=== PATIENT | female | born 1955 | race Caucasian/White ===

== ENCOUNTER 2017-06-04 07:10 | Day surgery (SDC) ==
[2013-12-31 15:03] VITALS: BMI 28.8
[2017-06-04] MEDS ORDERED: LIDOCAINE 1% 20 ML MDV ID STA (08:42)
[2017-06-04] MEDS ORDERED: DIPRIVAN 20 ML VIAL IVP ONE (09:20)
[2017-06-04] MEDS ORDERED: VERSED ONE (09:20)
[2017-06-04 10:52] VITALS: BP 120/65; TEMP 97.2
--- NOTE | 2017-06-05 11:56 | OP ---
INDICATIONS FOR PROCEDURE: 62-year-old female presents for colonoscopy exam. She had change in her bowel habits. She is having some increased loose stools. She usually suffers with constipation. She also has a family history of colon cancer involving her mother at age 76 and an uncle at age 76. MEDICATIONS: SEE ANESTHESIA NOTES. PROCEDURE: COLONOSCOPY, SNARE POLYPECTOMY, BIOPSY. REPORT: The risks, benefits, alternatives and limitations were discussed in detail with the patient. Informed consent was obtained. After adequate sedation was achieved, a digital rectal exam revealed good tone, no masses. The colonoscope was introduced into the rectum and advanced under direct visual guidance to the cecum. She has a very long redundent colon, required external pressure to get the scope tip into the cecum but the cecum was identified by the appendiceal orifice and IC valve. I then slowly withdrew the scope in a circumferential manner examining the mucosa quite carefully. I looked on the proximal and distal side of folds and flexures as best as possible. I was able to retroflex the scope in the right colon and left colon to increase visualization. In transverse colon, descending and sigmoid area there appeared to be some pigmentation of the mucosa suggestive of a melanosis. I biopsied this for histologic review. There was also a 6 or 7 mm sessile polyp in the descending colon. I removed this by snare technique. No other abnormalities were noted including on retroflex view of the anal canal. The prep was adequate. Withdrawal time was 10 minutes and 3 seconds. The patient tolerated the procedure well with stable vital signs and pulse oximetry throughout. IMPRESSION: 1. LONG REDUNDENT COLON 2. SMALL POLYP REMOVED 3. 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 High fiber diet. Suggesting a daily fiber supplement. The patient has told me that she has tried this already and it has improved her symptoms. 2. I will discuss with her possible supplements she is taking that may include a laxative and what to watch for. 3. Await colon polyp pathology. If everything is benign, I recommend repeat colonoscopy examination again in 5 years. 4. We will see her back in the office as needed. CC: Dr. Joseluis POWELL
== END 2017-06-04 11:45 | disposition home or self-care (01) ==
LOC: SURG 07:10
PROVIDERS: ATTEND Internal Medicine Gastroenterology
DX: R19.4 Change in bowel habit (principal); D12.4 Benign neoplasm of descending colon; D12.3 Benign neoplasm of transverse colon; K59.09 Other constipation; Q43.8 Other specified congenital malformations of intestine; Z80.0 Family history of malignant neoplasm of digestive organs
CPT/HCPCS: 82962

== ENCOUNTER 2017-06-25 14:08 | Emergency (ER) ==
[2017-06-25 14:15] VITALS: BP 129/71; TEMP 97.7; BMI 29.5
[2017-06-25] MEDS ORDERED: DUONEB NEB STA (16:05)
[2017-06-25] MEDS ORDERED: SOLU-MEDROL 125 MG IVP STA (16:23)
--- NOTE | 2017-06-25 16:48 | DI ---
EXAM: Chest two views HISTORY: Cough COMPARISON: 12/31/2013 TECHNIQUE: Two views of the chest were performed FINDINGS: The lungs are clear, excepting for granulomatous calcification. There is no pleural effus ion or pneumothorax. The heart is normal in size. The mediastinal contour is normal. Atherosclerosi s. Median sternotomy wires.. There are no acute abnormalities of the bones. Right cervical rib note d. IMPRESSION: No acute cardiopulmonary process.
[2017-06-25] MEDS ORDERED: LIDOCAINE HCL 1% SDV SUBCUT STA (17:51)
[2017-06-25] MEDS ORDERED: DECADRON 4 MG/ML SDV IM STA (17:51)
[2017-06-25] MEDS ORDERED: ROCEPHIN IM STA (17:51)
--- NOTE | 2017-06-25 17:58 | ED.PDOC ---
General ED Provider: Dr. JOAN VELEZ Chief Complaint: Respiratory Complaint Stated Complaint: cough Time Seen by Physician: 14:00 (seen with cathy at all times ) Mode of Arrival: Wheelchair Information Source: Patient Exam Limitations: No limitations Primary Care Provider: CHEN MERCER Nursing and Triage Documentation Reviewed and Agree: Yes (on warfarin ) Reviewed sepsis parameters & appropriate labs ordered?: Yes System Inflammatory Response Syndrome: Not Applicable Sepsis Protocol: For patient's 13 years and over: Temp is 96.8 and below OR 101 and greater Pulse >90 BPM Resp >20/minute Acutely Altered Mental Status Are patient's symptoms suggestive of a new infection, such as: -Pneumonia -Skin, Soft Tissue -Endocarditis -UTI -Bone, Joint Infection -Implantable Device -Acute Abdominal Infection -Wound Infection -Meningitis -Blood Stream Catheter Infection -Unknown Respiratory Complaint Exam - Respiratory Complaint/Exam Onset/Duration: 1 day Symptoms Are: Still present, Resolved Timing: Intermittent Initial Severity: Mild Current Severity: None Location: Nose, Throat, Chest Character: Reports: Non-productive cough Aggravating: Reports: None Alleviating: Reports: Bronchodilators, Spontaneous resolution Associated Signs and Symptoms: Reports: URI, Nasal congestion. Denies: Rapid breathing, Dyspnea, Fever, Chills, Chest pain, Pleuritic chest pain, Wheezing, Hemoptysis, Dizziness, Calf pain, Calf swelling, Edema, Hoarseness, Sinus discomfort, Vomiting, Sore throat, Weight loss, Decreased oral intake, Increased thirst, Increased appetite, Increased urination Related History: Reports: Similar episode History of Healthcare-Acquired Pneumonia: No Related Surgical History: Reports: None Pulmonary Embolism Risk Factors: None Review of Systems - Review Of Systems Constitutional: Reports: No symptoms Eyes: Reports: No symptoms Ears, Nose, Mouth, Throat: Reports: No symptoms Respiratory: Reports: Cough Cardiac: Reports: No symptoms GI: Reports: No symptoms : Reports: No symptoms Musculoskeletal: Reports: No symptoms Skin: Reports: No symptoms Neurological: Reports: No symptoms Endocrine: Reports: No symptoms Hematologic/Lymphatic: Reports: No symptoms All Other Systems: Reviewed and Negative Past Medical History - Past Medical History Previously Healthy: Yes Endocrine: Reports: DM 2 Cardiovascular: Reports: Hypertension Respiratory: Reports: None Hematological: Reports: None Gastrointestinal: Reports: None Genitourinary: Reports: None Neuro/Psych: Reports: None Musculoskeletal: Reports: None Cancer: Reports: None Last Menstrual Period: N/A - Surgical History General Surgical History: Reports: None - Family History Family History: Reports: None - Social History Smoking Status: Former smoker Hx Substance Use: No Alcohol Screening: None - Immunizations Tetanus Shot up to Date: No Physical Exam - Physical Exam Appearance: Well-appearing, No pain distress, Well-nourished Eyes: JESSICA, EOMI, Conjunctiva clear ENT: Ears normal, Nose normal, Oropharynx normal Respiratory: Airway patent, Breath sounds equal, Respirations nonlabored, Rhonchi Cardiovascular: RRR, Pulses normal, No rub, No murmur GI/: Soft, Nontender, No masses, Bowel sounds normal, No Organomegaly Musculoskeletal: Normal strength, ROM intact, No edema, No calf tenderness Skin: Warm, Dry, Normal color Neurological: Sensation intact, Motor intact, Reflexes intact, Cranial nerves intact, Alert, Oriented Psychiatric: Affect appropriate, Mood appropriate Interpretation - Radiology Interpretation Radiology Interpretation By: Radiologist Radiology Results: No acute changes Physician Notification - Case Discussed Physician Notified: pmd Time of Notification: 17:58 Admit To: Inpatient Critical Care Note - Critical Care Note Total Time (mins): 0 Course - Course Hematology/Chemistry: 06/25/17 16:25 06/25/17 16:25 Orders, Labs, Meds: Lab Review 06/25/17 06/25/17 06/25/17 16:23 16:25 16:25 WBC 5.46 RBC 4.54 Hgb 13.9 Hct 41.9 MCV 92.3 MCH 30.6 MCHC 33.2 RDW Coeff of Boni 13.2 Plt Count 226 Immature Gran % (Auto) 0.4 Neut % (Auto) 48.5 Lymph % (Auto) 26.6 [place] % (Auto) 17.0 H Eos % (Auto) 6.6 Baso % (Auto) 0.9 Immature Gran # (Auto) 0.0 Neut # 2.7 Lymph # 1.5 [place] # 0.9 Eos # 0.4 Baso # 0.1 Puncture Site Rr O2 Saturation 96.0 ABG pH 7.427 ABG pCO2 41.6 ABG pO2 78.0 L ABG HCO3 27.4 H ABG Total CO2 29 H ABG Base Excess 3 H Saulo Test + FiO2 % 21.0 Sodium 140 Potassium 3.6 Chloride 101 Carbon Dioxide 32 H Anion Gap 10.6 BUN 17 Creatinine 1.79 H Estimated GFR (MDRD) 29.00 BUN/Creatinine Ratio 9.49 Glucose 135 H Calcium 9.0 Total Bilirubin 0.4 AST 38 H ALT 22 Alkaline Phosphatase 89 Total Creatine Kinase 92 Troponin I 0.0220 Total Protein 8.1 Albumin 3.5 Globulin 4.6 Albumin/Globulin Ratio 0.76 Urine Color Urine Clarity Urine pH Ur Specific Britt Urine Protein Urine Glucose (UA) Urine Ketones Urine Blood Urine Nitrite Urine Bilirubin Urine Urobilinogen Ur Leukocyte Esterase Urine Microscopic WBC Ur Squamous Epith Cells Urine Bacteria Influenza A (Rapid) Influenza B (Rapid) 06/25/17 06/25/17 16:30 16:33 WBC RBC Hgb Hct MCV MCH MCHC RDW Coeff of Boni Plt Count Immature Gran % (Auto) Neut % (Auto) Lymph % (Auto) [place] % (Auto) Eos % (Auto) Baso % (Auto) Immature Gran # (Auto) Neut # Lymph # [place] # Eos # Baso # Puncture Site O2 Saturation ABG pH ABG pCO2 ABG pO2 ABG HCO3 ABG Total CO2 ABG Base Excess Saulo Test FiO2 % Sodium Potassium Chloride Carbon Dioxide Anion Gap BUN Creatinine Estimated GFR (MDRD) BUN/Creatinine Ratio Glucose Calcium Total Bilirubin AST ALT Alkaline Phosphatase Total Creatine Kinase Troponin I Total Protein Albumin Globulin Albumin/Globulin Ratio Urine Color Yellow Urine Clarity Clear Urine pH 5.5 Ur Specific Britt 1.010 Urine Protein Negative Urine Glucose (UA) Negative Urine Ketones Negative Urine Blood 1+ Urine Nitrite Negative Urine Bilirubin Negative Urine Urobilinogen 0.2 Ur Leukocyte Esterase 1+ Urine Microscopic WBC 2-5 Ur Squamous Epith Cells 5-10 Urine Bacteria Trace Influenza A (Rapid) Negative by naat Influenza B (Rapid) Negative by naat Orders Category Date Time Status ABG DRAW REQUEST Stat CARDIO 06/25/17 16:23 Ordered EKG-(ED ONLY) Stat CARDIO 06/25/17 16:05 Completed NEBULIZER TREATMENT Stat CARDIO 06/25/17 16:06 Ordered ED IV/MEDIPORT/POWERPORT .ONCE EMERGENCY 06/25/17 16:06 Active ABG Stat LAB 06/25/17 16:23 Completed CBC W/ AUTO DIFF Stat LAB 06/25/17 16:25 Completed COMPREHENSIVE METABOLIC PANEL Stat LAB 06/25/17 16:25 Completed CREATINE KINASE Stat LAB 06/25/17 16:25 Completed MOLECULAR GROUP A STREP Stat LAB 06/25/17 16:30 Results PARTIAL THROMBOPLASTIN TIME Stat LAB 06/25/17 17:59 Ordered PT WITH INR Stat LAB 06/25/17 17:59 Ordered RAPID FLU A/B Stat LAB 06/25/17 16:30 Completed STREP SCREEN Stat LAB 06/25/17 16:30 Results TROPONIN I Stat LAB 06/25/17 16:25 Completed URINALYSIS C & S IF INDICATED Stat LAB 06/25/17 16:33 Completed 0.9 % Sodium Chloride [Saline Flush] MEDS 06/25/17 16:06 Active 1 syr IVF PRN PRN Ceftriaxone Sodium [Rocephin] MEDS 06/25/17 17:51 Discontinued 1 gm IM ONCE STA Ipratropium/Albuterol Neb [Duoneb] MEDS 06/25/17 16:05 Discontinued 1 vial NEB ONCE STA Lidocaine HCl/Pf [Lidocaine HCl 1% Sdv] MEDS 06/25/17 17:51 Discontinued 5 ml SUBCUT ONCE STA Methylprednisolone Sod Succ/Pf [Solu-Medrol 125 mg] MEDS 06/25/17 16:23 Discontinued 125 mg IVP ONCE STA CHEST, 2 VIEWS PA & LAT Stat RADS 06/25/17 16:04 Completed Medications Generic Name Dose Route Start Last Admin Trade Name Freq PRN Reason Stop Dose Admin Sodium Chloride 1 syr 06/25/17 16:06 06/25/17 16:48 Saline Flush IVF 1 syr PRN PRN Administration To flush IV Discontinued Medications Generic Name Dose Route Start Last Admin Trade Name Freq PRN Reason Stop Dose Admin Albuterol/Ipratropium 1 vial 06/25/17 16:05 06/25/17 16:38 Duoneb NEB 06/25/17 16:06 1 vial ONCE STA Administration Ceftriaxone Sodium 1 gm 06/25/17 17:51 06/25/17 17:59 Rocephin IM 06/25/17 17:52 1 gm ONCE STA Administration Lidocaine HCl 5 ml 06/25/17 17:51 06/25/17 17:59 Lidocaine Hcl 1% Sdv SUBCUT 06/25/17 17:52 2.1 ml ONCE STA Administration Methylprednisolone Sodium Succinate 125 mg 06/25/17 16:23 06/25/17 16:48 Solu-Medrol 125 Mg IVP 06/25/17 16:24 125 mg ONCE STA Administration Vital Signs: Temp Pulse Resp BP Pulse Ox 06/25/17 14:08 97.7 F 86 20 129/71 94 L Departure - Departure Time of Disposition: 18:01 Disposition: HOME SELF-CARE Discharge Problem: Viral syndrome, Cough in adult, Bronchitis Instructions: Acute Bronchitis (ED), Cold Symptoms (ED), Chronic Cough (ED) Condition: Good Pt referred to PMD for follow-up: Yes Additional Instructions: Please call your Family Physician as soon as possible to schedule a follow-up appointment. Allergies/Adverse Reactions: Allergies clopidogrel bisulfate [From Plavix] Adverse Reaction (Verified 12/31/13 15:08) erythromycin base [Erythromycin Base] Adverse Reaction (Verified 12/31/13 15:08) ibuprofen Adverse Reaction (Verified 12/31/13 15:08) insulin detemir [From Levemir] Adverse Reaction (Verified 12/31/13 15:08) insulin NPH human isophane [From Humulin 70/30] Adverse Reaction (Verified 12/31 15:08) insulin regular, human [From Humulin 70/30] Adverse Reaction (Verified 12/31/13 15:08) iodine Adverse Reaction (Verified 12/31/13 15:08) topiramate [From Topamax] Adverse Reaction (Verified 12/31/13 15:08) Home Medications: Ambulatory Orders Alprazolam [Xanax] 0.5 mg PO TID PRN 12/31/13 Aspirin [Aspirin EC] 325 mg PO DAILYWM 12/31/13 Cilostazol [Cilostazol] 100 mg PO BID 12/31/13 Cimetidine [Tagamet] 800 mg PO BEDTIME 12/31/13 Clindamycin HCl 300 mg PO TID 12/31/13 Ergocalciferol (Vitamin D2) [Vitamin D2] 50,000 unit PO WEEKLY 12/31/13 Esomeprazole Magnesium [Nexium] 40 mg PO BID 12/31/13 Folic Acid [Folic Acid] 3 tab PO DAILY 12/31/13 Furosemide [Lasix] 80 mg PO BID 12/31/13 Hydrocodone Bit/Acetaminophen [[place] 10-325] 1 each PO Q6HR PRN 12/31/13 Hypromellose [Systane Gel] 10 gm OP BEDTIME 12/31/13 Insulin Aspart [Novolog Flexpen] 2 units SQ UNKNOWN 12/31/13 Insulin Glargine,Hum.rec.anlog [Lantus Solostar] 30 unit SQ DAILY 12/31/13 Iron 65 mg PO DAILY 12/31/13 Nitroglycerin [Nitrostat] 0.4 mg SL UNKNOWN PRN 12/31/13 Ondansetron HCl [Zofran] 4 mg PO TID PRN 12/31/13 Potassium Chloride [K-Dur] 20 meq PO TID 12/31/13 Propylene Glycol/Peg 400/Pf [Systane Ultra 0.4-0.3% Eye Drp] 1 each OP UNKNOWN 12/31/13 Simvastatin 20 mg PO DAILY 12/31/13 Sotalol HCl [Betapace] 40 mg PO BID 12/31/13 Warfarin Sodium [Coumadin] 7 mg PO DAILY 12/31/13 Calcitriol 1 PO DAILY 05/11/14 Cholecalciferol (Vitamin D3) [Vitamin D] PO WEEKLY 05/11/14 Ciprofloxacin HCl [Cipro] 1 PO Q12HR 05/11/14 Cyclosporine [Restasis] 1 OP BID 05/11/14 Linaclotide [Linzess] 1 PO DAILY 05/11/14 Disposition Discussed With: Patient, Family
== END 2017-06-25 18:29 | disposition home or self-care (01) ==
LOC: ED 14:08
DX: J40 Bronchitis, not specified as acute or chronic (principal); B34.9 Viral infection, unspecified; E11.9 Type 2 diabetes mellitus without complications; I10 Essential (primary) hypertension; Z79.01 Long term (current) use of anticoagulants; Z79.899 Other long term (current) drug therapy
CPT/HCPCS: 36415; 80053; 81001; 82550; 82803; 84484; 85025; 85610; 85730; 87502; 87651; 87880; 93005; 93010; 94640; 96374; 96375; 99283

== ENCOUNTER 2017-06-28 12:44 | Inpatient (IN) ==
[2017-06-28] MEDS ORDERED: ATROPINE SULFATE PFS IVP PRN (13:06)
[2017-06-28] MEDS ORDERED: TYLENOL PO PRN (13:06)
[2017-06-28] MEDS ORDERED: NITROSTAT SL PRN ×2 (13:06→14:26)
[2017-06-28] MEDS ORDERED: VISTARIL INJ IM PRN (13:06)
[2017-06-28] MEDS ORDERED: HUMULIN R SUBCUT PRN (13:06)
[2017-06-28] MEDS ORDERED: MORPHINE 4 MG/ML VIAL IVP PRN (13:06)
[2017-06-28] MEDS ORDERED: LANTUS SUBCUT SCH (13:15)
[2017-06-28 13:52] VITALS: BMI 30.3
[2017-06-28] MEDS ORDERED: ZYRTEC PO PRN (14:26)
[2017-06-28] MEDS ORDERED: XANAX PO PRN (14:26)
[2017-06-28] MEDS ORDERED: INSULIN LISPRO SQ PRN (14:26)
[2017-06-28] MEDS: LANTUS SUBCUT SCH (14:31)
[2017-06-28] MEDS: DEXTROSE 5%-1/2NS IV SOLUTION 1,000 ML IV SCH (14:31)
[2017-06-28] MEDS: ZITHROMAX PO SCH (14:32)
[2017-06-28] MEDS: DECADRON 4 MG/ML SDV IM SCH (14:32)
[2017-06-28] MEDS: ROCEPHIN 1 GM in SODIUM CHLORIDE 50 ML IV SCH (14:33)
--- NOTE | 2017-06-28 16:03 | DI ---
EXAM: CHEST FRONTAL VIEW HISTORY: Pneumonitis. COMPARISON: 06/25/2017 FINDINGS: Heart size remains within normal limits. Sternotomy wires are noted. There are scattered calcifications suggesting old granulomatous disease. No acute infiltrates are seen. No vascular con gestion. There is no consolidation, visible pleural fluid or pneumothorax. Bones reveal no acute fra cture. IMPRESSION: No acute cardiopulmonary process.
[2017-06-28] MEDS ORDERED: PEG OP PRN (18:59)
[2017-06-28] MEDS ORDERED: PROPYLENE GLYCOL OP PRN (18:59)
[2017-06-28] MEDS ORDERED: [UNRECOGNIZED DRUG - OTHER] OP PRN (18:59)
[2017-06-28] MEDS ORDERED: WARFARIN SODIUM 7 MG PO SCH (19:00)
[2017-06-28] MEDS ORDERED: COUMADIN ONE ×2 (19:04)
[2017-06-28] MEDS ORDERED: ZOCOR ONE (20:31)
[2017-06-28] MEDS ORDERED: NON-FORMULARY MEDICATION (Simvastatin [Simvastatin] 20 MG) PO SCH (21:00)
[2017-06-28] MEDS: BETAPACE PO SCH (21:03)
[2017-06-28] MEDS: PLETAL PO SCH (21:03)
[2017-06-28] MEDS: TAGAMET PO SCH (21:04)
[2017-06-28] MEDS: CALCITRIOL PO SCH (21:05)
[2017-06-29] MEDS: DEXTROSE 5%-1/2NS IV SOLUTION 1,000 ML IV SCH ×2 (03:22→23:13)
[2017-06-29] MEDS ORDERED: ASPIRIN EC PO SCH (08:00)
[2017-06-29] MEDS: ASPIRIN EC PO SCH (08:17)
[2017-06-29] MEDS: BETAPACE PO SCH ×2 (08:18→22:20)
[2017-06-29] MEDS: FOLIC ACID PO SCH (08:19)
[2017-06-29] MEDS: ZITHROMAX PO SCH (08:20)
[2017-06-29] MEDS: ROCEPHIN 1 GM in SODIUM CHLORIDE 50 ML IV SCH (08:20)
[2017-06-29] MEDS ORDERED: INSULIN GLARGINE HUM REC ANLOG 30 UNIT SQ SCH (09:00)
[2017-06-29] MEDS ORDERED: IRON 65 MG PO SCH (09:00)
[2017-06-29] MEDS ORDERED: LANTUS SUBCUT SCH (09:00)
[2017-06-29] MEDS: HUMALOG SUBCUT PRN ×3 (09:54→22:45)
[2017-06-29] MEDS: LANTUS SUBCUT SCH (09:55)
[2017-06-29] MEDS: DECADRON 4 MG/ML SDV IM SCH (09:56)
[2017-06-29] MEDS: PLETAL PO SCH ×2 (09:56→22:19)
[2017-06-29] MEDS: FERROUS SULFATE PO SCH (09:56)
[2017-06-29] MEDS: TUSSIONEX PO SCH ×2 (11:37→22:19)
[2017-06-29] MEDS ORDERED: COUMADIN PO SCH ×2 (17:00)
[2017-06-29] MEDS: ZOCOR PO SCH (22:19)
[2017-06-29] MEDS: TAGAMET PO SCH (22:19)
[2017-06-29] MEDS: CALCITRIOL PO SCH (23:13)
[2017-06-30] MEDS: NORCO 10-325 PO PRN (04:51)
[2017-06-30] MEDS: HUMALOG SUBCUT PRN ×3 (08:28→22:09)
[2017-06-30] MEDS: LANTUS SUBCUT SCH (08:28)
[2017-06-30] MEDS: FERROUS SULFATE PO SCH (08:29)
[2017-06-30] MEDS: ZITHROMAX PO SCH (08:29)
[2017-06-30] MEDS: ASPIRIN EC PO SCH (08:29)
[2017-06-30] MEDS: FOLIC ACID PO SCH (08:30)
[2017-06-30] MEDS: BETAPACE PO SCH ×2 (08:30→21:56)
[2017-06-30] MEDS: PLETAL PO SCH ×2 (08:30→21:57)
[2017-06-30] MEDS: DECADRON 4 MG/ML SDV IM SCH (08:31)
[2017-06-30] MEDS: TUSSIONEX PO SCH ×2 (09:25→22:02)
[2017-06-30] MEDS: ROCEPHIN 1 GM in SODIUM CHLORIDE 50 ML IV SCH (09:25)
[2017-06-30] MEDS: K-DUR PO SCH ×2 (12:13→16:57)
[2017-06-30] MEDS: CALCITRIOL PO SCH (21:57)
[2017-06-30] MEDS: TAGAMET PO SCH (21:58)
[2017-06-30] MEDS: ZOCOR PO SCH (21:59)
[2017-07-01] MEDS: NORCO 10-325 PO PRN ×2 (04:08→20:59)
[2017-07-01] MEDS: LANTUS SUBCUT SCH (08:39)
[2017-07-01] MEDS: FOLIC ACID PO SCH (08:39)
[2017-07-01] MEDS: BETAPACE PO SCH ×2 (08:40→20:59)
[2017-07-01] MEDS: DECADRON 4 MG/ML SDV IM SCH (08:40)
[2017-07-01] MEDS: K-DUR PO SCH ×3 (08:40→16:48)
[2017-07-01] MEDS: ASPIRIN EC PO SCH (08:40)
[2017-07-01] MEDS: PLETAL PO SCH ×2 (08:40→20:59)
[2017-07-01] MEDS: FERROUS SULFATE PO SCH (08:40)
[2017-07-01] MEDS: ROCEPHIN 1 GM in SODIUM CHLORIDE 50 ML IV SCH (08:43)
[2017-07-01] MEDS: TUSSIONEX PO SCH ×2 (08:45→20:59)
[2017-07-01] MEDS: XOPENEX 1.25 MG NEB SCH ×3 (17:03→22:47)
[2017-07-01] MEDS: HUMALOG SUBCUT PRN ×2 (17:32→21:00)
[2017-07-01] MEDS ORDERED: XOPENEX 0.63 MG NEB SCH (18:00)
[2017-07-01] MEDS: TAGAMET PO SCH (20:59)
[2017-07-01] MEDS: ZOCOR PO SCH (20:59)
[2017-07-01] MEDS: CALCITRIOL PO SCH (21:01)
[2017-07-02] MEDS: XOPENEX 1.25 MG NEB SCH ×4 (04:13→23:12)
[2017-07-02] MEDS: HUMALOG SUBCUT PRN ×4 (05:58→20:42)
[2017-07-02] MEDS: ROCEPHIN 1 GM in SODIUM CHLORIDE 50 ML IV SCH (08:29)
[2017-07-02] MEDS: ASPIRIN EC PO SCH (08:29)
[2017-07-02] MEDS: TUSSIONEX PO SCH ×2 (08:29→20:10)
[2017-07-02] MEDS: BETAPACE PO SCH ×2 (08:30→20:10)
[2017-07-02] MEDS: K-DUR PO SCH ×3 (08:30→17:01)
[2017-07-02] MEDS: FOLIC ACID PO SCH (08:30)
[2017-07-02] MEDS: FERROUS SULFATE PO SCH (08:30)
[2017-07-02] MEDS: PLETAL PO SCH ×2 (08:31→20:11)
[2017-07-02] MEDS: LANTUS SUBCUT SCH (08:31)
[2017-07-02] MEDS: DECADRON 4 MG/ML SDV IM SCH (08:31)
--- NOTE | 2017-07-02 10:34 | PCM.PROG ---
Attending Provider: ATTENDING PROVIDER: Dr. CHEN MERCER This patient is seen with Reva Guzmán, Nurse Practitioner. DATE OF SERVICE: 07/02/17 SUBJECTIVE: This 62 year old WHITE/ F was hospitalized 06/28/17. The patient is lying in bed, alert. She states cough is somewhat better. REVIEW OF SYSTEMS: CONSTITUTIONAL: No night sweats. No fatigue, malaise, lethargy. No fever or chills. HEENT: Eyes: No visual changes. No eye pain. No eye discharge. ENT: No runny nose. No epistaxis. No sinus pain. No odynophagia. No congestion. RESPIRATORY: Positive for cough and wheezing. No hemoptysis. No shortness of breath. CARDIOVASCULAR: No angina symptoms. No CHF symptoms. No atypical chest pain for CAD. No palpitations. No orthopnea.. GASTROINTESTINAL: No abdominal pain. No nausea or vomiting. No diarrhea or constipation. No hematemesis. No hematochezia. GENITOURINARY: No urgency. No frequency. No dysuria. No hematuria. No obstructive symptoms. No discharge. No pain. No significant abnormal bleeding. MUSCULOSKELETAL: No musculoskeletal pain; no joint swelling. NEUROLOGICAL: Awake, alert, oriented to time, place and person. No headache. No neck pain. No syncope. No seizures. No dizziness. PSYCHIATRIC: Not anxious. No depression. No suicidal thoughts. No homicidal thoughts. SKIN: No rash. No lesions. No wounds. ENDOCRINE: No unexplained weight loss. No weight gain. HEMATOLOGIC/LYMPHATIC: No anemia. No purpura. No petechiae. No prolonged or excessive bleeding. No palpable lymph nodes. PHYSICAL EXAMINATION: GENERAL: The patient is awake, alert and oriented, lying in bed in no distress. VITAL SIGNS: Temperature 97.7 F, Pulse 72, Respiratory Rate 20, BP 126/60, Pulse Ox 97% HEENT: Head normocephalic, atraumatic. Eyes: Extraocular muscles are intact. Pupils are equal, round and reactive to light and accommodation. Ears: No lesions. Nose appeared normal. Throat: No exudate or erythema. NECK: Supple. No JVD, no carotid bruit. No lymphadenopathy or thyromegaly. LUNGS: Diminished breath sounds bilaterally with faint expiratory wheeze. Percussion note normal. Chest symmetrical. HEART: S1, S2, no S3. No murmurs. No cyanosis or clubbing. No ascites. Pulses: Dorsalis pedis and posterior tibial pulses +1 to +2 both sides. ABDOMEN: Soft. Non-tender. Bowel sounds active. No CVA tenderness. No mass felt. EXTREMITIES: No edema. Full range of motion of all extremities, equal. NEUROLOGIC: No focal deficit. Cranial nerves II through XII are grossly intact. No headache, no double vision or headache. SKIN: Not dry. Intact. Turgor-normal. LYMPHATIC: No palpable lymph nodes/no lymphedema. MUSCULOSKELETAL: Normal joints with no swelling. Muscle tone is normal. LAB REVIEW: 07/02/17 04:30 07/02/17 04:30 07/02/17 04:30: Sodium 136, Potassium 3.7, Chloride 102, Carbon Dioxide 27, Anion Gap 10.7, BUN 24 H, Creatinine 1.36 H, Estimated GFR (MDRD) 39.00, BUN/ Creatinine Ratio 17.64, Glucose 185 H, Calcium 8.5, Total Bilirubin 0.3, AST 18 , ALT 9 L, Alkaline Phosphatase 65, Total Protein 5.9, Albumin 2.6 L, Globulin 3.3, Albumin/Globulin Ratio 0.79 07/02/17 04:30: WBC 7.53, RBC 4.03 L, Hgb 12.2, Hct 35.9 L, MCV 89.1, MCH 30.3, MCHC 34.0, RDW Coeff of Boni 12.6, Plt Count 267, Immature Gran % (Auto) 3.3, Neut % (Auto) 53.4, Lymph % (Auto) 31.1, [place] % (Auto) 10.9 H, Eos % (Auto) 0.5 , Baso % (Auto) 0.8, Immature Gran # (Auto) 0.3, Neut # 4.0, Lymph # 2.3, [place] # 0.8, Eos # 0.0, Baso # 0.1 ASSESSMENT: 1. Acute pneumonitis improving 2. Flu like syndrome improving 3. Type 1 Diabetic PLAN: 1. Continue nebs 2. INR daily Plan and coordination of the patient's care discussed in the presence of [employer] and nurse. CONDITION: Stable SCRIBED BY: Stewart ALEGRE scribed while in presence of service performed by Dr. Mercer/Reva Guzmán APRN on 07/02/17 ([id number])
--- NOTE | 2017-07-02 10:54 | PN ---
DATE OF SERVICE: 07/01/17 SUBJECTIVE: The patient was hospitalized with acute bronchitis/pneumonia and dehydration. The patient was doing much better. Today she is coughing a little bit more. Bronchitis seems to be coming back. REVIEW OF SYSTEMS: CONSTITUTIONAL: No night sweats. No fatigue, malaise, lethargy. No fever or chills. HEENT: Eyes: No visual changes. No eye pain. No eye discharge. ENT: No runny nose. No epistaxis. No sinus pain. No sore throat. No odynophagia. No congestion. RESPIRATORY: No cough, no congestion. No hemoptysis. No shortness of breath. CARDIOVASCULAR: No angina symptoms. No CHF symptoms. No atypical chest pain for CAD. No palpitations. No orthopnea. GASTROINTESTINAL: No abdominal pain. No nausea or vomiting. No diarrhea or constipation. No hematemesis. No hematochezia. GENITOURINARY: No urgency. No frequency. No dysuria. No hematuria. No obstructive symptoms. No discharge. No pain. No significant abnormal bleeding. MUSCULOSKELETAL: No musculoskeletal pain; no joint swelling. NEUROLOGICAL: No headache. No neck pain. No syncope. No seizures. No dizziness. PSYCHIATRIC: Not anxious. No depression. No suicidal thoughts. No homicidal thoughts. SKIN: No rash. No lesions. No wounds. ENDOCRINE: No unexplained weight loss. No weight gain. HEMATOLOGIC/LYMPHATIC: No anemia. No purpura. No petechiae. No prolonged or excessive bleeding. No palpable lymph nodes. PHYSICAL EXAMINATION: HEENT: Head normocephalic, atraumatic. Eyes: Extraocular muscles are intact. Pupils are equal, round and reactive to light and accommodation. Ears: No lesions. Nose appeared normal. Throat: No exudate or erythema. NECK: Supple. No JVD, no carotid bruit. No lymphadenopathy or thyromegaly. LUNGS: Decreased breath sounds with mild wheeze. Percussion note normal. Chest symmetrical. HEART: S1, S2, no S3. No murmurs. No cyanosis or clubbing. No ascites. Pulses: Dorsalis pedis and posterior tibial pulses +1 to +2 both sides. The patient has no distress. ABDOMEN: Soft. Nontender. Bowel sounds active. No CVA tenderness. No mass felt. EXTREMITIES: No edema. Full range of motion of all extremities, equal. NEUROLOGIC: No focal deficit. Cranial nerves II through XII are grossly intact. No headache, no double vision or headache. SKIN: Not dry. Intact. Turgor - normal. LYMPHATIC: No palpable lymph nodes/no lymphedema. MUSCULOSKELETAL: Normal joints with no swelling. Muscle tone is normal. PLAN: 1. Continue steroids and antibiotics 2. NEB treatment will be started. 3. Will put the patient on Xopenex Q 6 hours. TIME SPENT: More than 30 minutes. Plan and coordination of the patient's care discussed in the presence of nurse. SHERRY
--- NOTE | 2017-07-02 11:06 | PN ---
DATE OF SERVICE: 06/30/17 SUBJECTIVE: 62-year-old white female sitting up in bed. She had been to the bathroom on her own. She states her cough is improving. She is feeling somewhat better. No fever. REVIEW OF SYSTEMS: CONSTITUTIONAL: Positive for weakness. No night sweats. No fever or chills. HEENT: Eyes: No visual changes. No eye pain. No eye discharge. ENT: No runny nose. No epistaxis. No sinus pain. No sore throat. No odynophagia. No congestion. RESPIRATORY: Positive for cough. No congestion. No hemoptysis. No shortness of breath. CARDIOVASCULAR: No angina symptoms. No CHF symptoms. No atypical chest pain for CAD. No palpitations. No orthopnea. GASTROINTESTINAL: No abdominal pain. No nausea or vomiting. No diarrhea or constipation. No hematemesis. No hematochezia. GENITOURINARY: No urgency. No frequency. No dysuria. No hematuria. No obstructive symptoms. No discharge. No pain. No significant abnormal bleeding. MUSCULOSKELETAL: No musculoskeletal pain; no joint swelling. NEUROLOGICAL: No headache. No neck pain. No syncope. No seizures. No dizziness. PSYCHIATRIC: Not anxious. No depression. No suicidal thoughts. No homicidal thoughts. SKIN: No rash. No lesions. No wounds. ENDOCRINE: No unexplained weight loss. No weight gain. HEMATOLOGIC/LYMPHATIC: No anemia. No purpura. No petechiae. No prolonged or excessive bleeding. No palpable lymph nodes. PHYSICAL EXAMINATION: VITAL SIGNS: Temperature 97.4, heart rate 70, respirations 16, BP 136/74, pulse ox 96. HEENT: Head normocephalic, atraumatic. Eyes: Extraocular muscles are intact. Pupils are equal, round and reactive to light and accommodation. Ears: No lesions. Nose appeared normal. Throat: No exudate or erythema. NECK: Supple. No JVD, no carotid bruit. No lymphadenopathy or thyromegaly. LUNGS: Diminished breath sounds bilaterally with bilateral rhonchi. Percussion note normal. Chest symmetrical. HEART: S1, S2, no S3. No murmurs. No cyanosis or clubbing. No ascites. Pulses: Dorsalis pedis and posterior tibial pulses +1 to +2 both sides. ABDOMEN: Soft. Nontender. Bowel sounds active. No CVA tenderness. No mass felt. EXTREMITIES: No edema. Full range of motion of all extremities, equal. NEUROLOGIC: No focal deficit. Cranial nerves II through XII are grossly intact. No headache, no double vision or headache. SKIN: Not dry. Intact. Turgor - normal. LYMPHATIC: No palpable lymph nodes/no lymphedema. MUSCULOSKELETAL: Normal joints with no swelling. Muscle tone is normal. LABS: White count 5.88, hemoglobin 12.7, hematocrit 37.1, platelets 230. Sodium 135, potassium 3.2, BUN 28, creatinine 1.58, INR 3.74. ASSESSMENT: 1. Acute pneumonitis improving 2. Flu-like syndrome 3. Type 1 diabetic 4. Hypokalemia 5. Mild dehydration, which is improving PLAN: 1. We will hold her Coumadin today due to INR of 3.74 2. She is on potassium at home and for some reason was not started here, will restart potassium 20 mEq t.i.d. 3. Continue daily labs 4. Will continue with neb treatments and IV antibiotics and IV steroids 5. Will follow with her closely TIME SPENT: More than 30 minutes. Plan and coordination of the patient's care discussed in the presence of nurse. SHERRY
--- NOTE | 2017-07-02 13:44 | PN ---
DATE OF SERVICE: 06/30/17 SUBJECTIVE: The patient was admitted with acute bronchitis/pneumonitis. The patient is feeling a lot better. Hydration status is improved. The sugar has been stabilized PLAN: 1. Continue Steroids and Antibiotics. The patient was seen and examined with Nurse Practitioner. TIME SPENT: More than 30 minutes. Plan and coordination of the patient's care discussed in the presence of nurse. SHERRY
[2017-07-02] MEDS: ZOCOR PO SCH (20:10)
[2017-07-02] MEDS: TAGAMET PO SCH (20:10)
[2017-07-02] MEDS: CALCITRIOL PO SCH (20:36)
[2017-07-03] MEDS: XOPENEX 1.25 MG NEB SCH ×4 (04:54→23:37)
[2017-07-03] MEDS: HUMALOG SUBCUT PRN ×3 (06:23→20:09)
[2017-07-03] MEDS: ROCEPHIN 1 GM in SODIUM CHLORIDE 50 ML IV SCH (08:32)
[2017-07-03] MEDS: TUSSIONEX PO SCH ×2 (08:37→20:09)
[2017-07-03] MEDS: LANTUS SUBCUT SCH (08:37)
[2017-07-03] MEDS: FOLIC ACID PO SCH (08:38)
[2017-07-03] MEDS: BETAPACE PO SCH ×2 (08:39→20:10)
[2017-07-03] MEDS: PREDNISONE PO SCH ×2 (08:39→16:50)
[2017-07-03] MEDS: FERROUS SULFATE PO SCH (08:40)
[2017-07-03] MEDS: ASPIRIN EC PO SCH (08:40)
[2017-07-03] MEDS: K-DUR PO SCH ×3 (08:40→16:50)
[2017-07-03] MEDS: PLETAL PO SCH ×2 (08:41→20:10)
--- NOTE | 2017-07-03 08:58 | PN ---
DATE OF SERVICE: 06/29/17 SUBJECTIVE: 62 year old white female who has Type I diabetes was hospitalized with pneumonitis/Flu type of symptoms. The patient was dehydrated. The patient has been earlier seen in the emergency room and was sent home one antibiotics and steroids. The patient's condition didn't improve so she decided to come to the office. At that time the patient was dehydrated. Today she is feeling a lot better and hydration status has improved. REVIEW OF SYSTEMS: CONSTITUTIONAL: No night sweats. No fatigue, malaise, lethargy. No fever or chills. Weak. HEENT: Eyes: No visual changes. No eye pain. No eye discharge. ENT: No runny nose. No epistaxis. No sinus pain. No sore throat. No odynophagia. No congestion. RESPIRATORY: Cough, Congestion. No hemoptysis. No shortness of breath. CARDIOVASCULAR: No angina symptoms. No CHF symptoms. No atypical chest pain for CAD. No palpitations. No orthopnea. GASTROINTESTINAL: No abdominal pain. No nausea or vomiting. No diarrhea or constipation. No hematemesis. No hematochezia. Appetite has improved. GENITOURINARY: No urgency. No frequency. No dysuria. No hematuria. No obstructive symptoms. No discharge. No pain. No significant abnormal bleeding. MUSCULOSKELETAL: No musculoskeletal pain; no joint swelling. NEUROLOGICAL: No headache. No neck pain. No syncope. No seizures. No dizziness. PSYCHIATRIC: Not anxious. No depression. No suicidal thoughts. No homicidal thoughts. SKIN: No rash. No lesions. No wounds. ENDOCRINE: No unexplained weight loss. No weight gain. HEMATOLOGIC/LYMPHATIC: No anemia. No purpura. No petechiae. No prolonged or excessive bleeding. No palpable lymph nodes. PHYSICAL EXAMINATION: GENERAL: The patient is oriented to time, place and person. HEENT: Head normocephalic, atraumatic. Eyes: Extraocular muscles are intact. Pupils are equal, round and reactive to light and accommodation. Ears: No lesions. Nose appeared normal. Throat: No exudate or erythema. NECK: Supple. No JVD, no carotid bruit. No lymphadenopathy or thyromegaly. LUNGS: Decreased breath sounds but clear to auscultation. Percussion note normal. Chest symmetrical. HEART: S1, S2, no S3. No murmurs. No cyanosis or clubbing. No ascites. Pulses: Dorsalis pedis and posterior tibial pulses +1 to +2 both sides. ABDOMEN: Soft. Nontender. Bowel sounds active. No CVA tenderness. No mass felt. EXTREMITIES: No edema. Full range of motion of all extremities, equal. NEUROLOGIC: No focal deficit. Cranial nerves II through XII are grossly intact. No headache, no double vision or headache. SKIN: Not dry. Intact. Turgor - normal. LYMPHATIC: No palpable lymph nodes/no lymphedema. MUSCULOSKELETAL: Normal joints with no swelling. Muscle tone is normal. LABS: Hgb 13, hct 37, WBC 4,200 normal differential, creatinine 1.6, BUN 25, potassium 3.8, glucose 300. ASSESSMENT: 1. Pneumonitis/ Bronchitis flu type of symptoms seems to be resolving 2. Dehydration, resolving 3. Coronary artery disease with stable cardiac status 4. Diabetes seems to be stable with no evidence of Ketoacidosis PLAN: 1. Discontinue IV fluids 2. Do daily INR 3. Tussionex is to be given for dry cough CONDITION: Stable The patient and also the nursing staff were explained about that patient needs to monitor and decide her own regular insulin for sliding coverage. This has been doing this for a number of years and she is very good about it. TIME SPENT: More than 30 minutes. Plan and coordination of the patient's care discussed in the presence of nurse. SHERRY
--- NOTE | 2017-07-03 10:10 | HP ---
DATE OF SERVICE: 06/28/17 HISTORY OF PRESENT ILLNESS: This is a 62-year-old female who presented with low grade temperature since , pain with coughing/nasal congestion. The patient had a temperature of 99 this a.m., went to ER 06/25 and was given Prednisone 40 mg daily, Amoxil 500 mg q.i.d. PAST MEDICAL HISTORY: Rheumatoid arthritis PAD, severe History of kidney stones History of esophageal ulcer Chronic kidney disease, Stage 3 CAD with ME Diabetes mellitus Type 1 Dyslipidemia Neuropathy PAST SURGICAL HISTORY: Tonsillectomy, 1964 Cyst removed right shoulder, 1978 Cyst ruptured on right ovary, removed part of ovary and appendix, 1981 , 1982 Nine DNCs 1972 through 1984 Complete hysterectomy, 1984 Angioplasty - heart attack, 1987 Angiograms Several laser surgeries to both eyes, 1990 through 1995 Two stents to kidneys, 2000 CABG, four, 2000 Colonoscopy, 2003 Cataract with lens implant, left and right eye, 2005 Two stents right leg, 2007 Carpal tunnel release right hand, 2010 Trigger finger release, right thumb, 2010 Cysto with bilateral retrograde pyelogram, 2010 Laparoscopic cholecystectomy, 2010 Arteriogram right leg, 2011 Heart catheterization, 2011 Fracture repair with metal plate, left ankle, 2011 Meniscus and arthritis nodules removed, 2013 Arterial bypass right leg, 2014 EGD, 2014 Hardware removal, left ankle, 2013 Colonoscopy, 2017 REVIEW OF SYSTEMS: CONSTITUTIONAL: Fever and fatigue. HEENT: Sinus drainage. No sore throat. RESPIRATORY: Cough and congestion. No hemoptysis. CARDIOVASCULAR: Positive for palpitations, pleuritic chest pain, and shortness of breath with exertion. No angina, CHF symptoms. GASTROINTESTINAL: No melena or abdominal pain. No GERD. GENITOURINARY: No hematuria, no polyuria. REPORTING SPECIALIST: No blackout, no dizziness, no headache, no double vision. MUSCULOSKELETAL: Osteoarthritis pain. ENDOCRINE: No weight loss, no weight gain. SKIN: Not dry, no rash. PSYCHIATRIC: Not anxious, no depression, no suicidal thoughts, no homicidal thoughts. SOCIAL HISTORY: Former smoker, 4 packs per day times 30 years, quit in 2000. No alcohol use. No illicit drug use. . One child. FAMILY HISTORY: Father . Mother . Two brothers. Three sisters. MEDICATIONS: Cilostazol (substituted for Pletal) 100 mg, one tab two times a day 1 a.m. and 1 p.m. Cimetidine 400 mg two tablets daily Coated Aspirin 325 mg one tablet a.m. Warfarin 3 mg take two tablets along with one 1 mg daily at 5 p.m. Warfarin 1 mg one tablet along with two 3 mg tablets daily at 5 p.m. Lasix 80 mg two tablets daily one a.m. and one p.m. Sotalol HCI 80 mg 1/2 tab in the a.m. and 1/2 tab in the p.m. Potassium Chloride 20 mEq one tablet 3 times a day Protonix 40 mg two capsules daily at 1 a.m. and 1 p.m. Xanax 0.5 mg one tablet three times daily as needed Simvastatin 20 mg one tablet p.m. Lantus Solostar Insulin Glargine U-100 30 units at a.m. Humalog U-100 sliding scale - cover over 200 Zofran 4 mg one tablet three times daily as needed for nausea and vomiting Leflunomide 10 mg one tablet five days a week Folic Acid 1 mg three tablets daily [place] 10-325 mg one tablet three times daily as needed Glucagon Emergency Kit mg - use as needed Nitroglycerin 0.[address] one tab under tongue as directed Iron 65 mg one daily Xiidra (lifitgrast opththalmic solution)5% one drop in each eye twice daily Systane Ultra lubricant eye drops one drop in each eye as needed daily Vitamin D2 cap 50,000 IU one capsule weekly (Saturday) Calcitriol 0.25 mcg one capsule daily Zyrtec 10 mg one tablet daily as needed ALLERGIES: HUMULIN INSULIN, IVP DYE, LEVEMIR INSULIN, TAPE, BAND-AIDS AND OTHER SUCH ADHESIVES, TOPAMAX, PLAVIX, IBUPROFEN, ERYTHROMYCIN PHYSICAL EXAMINATION: V/S: Pulse 86, BP 138/60, temperature 98, 02 sat 94%, weight 203 lbs, height 5' 9 1/2", BMI 24.6 GENERAL APPEARANCE: Oriented times three. HEENT: Yellow drainage. NECK: No JVP, no bruits. RESPIRATORY: Decreased breath sounds with rhonchi on the right. CARDIOVASCULAR: S1, S2, no S3, no murmurs. No cyanosis, clubbing. No ascites. GI/ABDOMEN: No tenderness. Bowel sounds are active. EXTREMITIES: No edema, pulses +1, equal. SKIN: Dry. REPORTING SPECIALIST: Deep tendon reflexes, sensory, motor and gait all normal. RECTAL/PELVIC: Colonoscopy screening. Pelvic: Hysterectomy. Advised yearly exams. Refused mammogram. ASSESSMENT: 1. PNEUMONITIS 2. PLEURITIC PAIN 3. FEVER 4. FLU SYNDROME 5. DEHYDRATION 6. TYPE 1 DIABETES 7. RHEUMATOID ARTHRITIS 8. STATUS POST CHOLECYSTECTOMY 9. SEVERE PERIPHERAL ARTERIAL DISEASE 10. HISTORY OF KIDNEY STONE 11. HISTORY OF ESOPHAGEAL ULCER 12. CKD 3/4, DR. REYNOSO 13. HISTORY OF CAD WITH ME 1987 14. DMI 15. NEUROPATHY, SEVERE 16. DYSLIPIDEMIA PLAN: 1. Admit regular 2. Diet regular 3. Routine telemetry orders 4. ABG, T4 and TSH 5. Lantus 30 units subcut today and q.a.m. 6. 1000 cc D5 1/2 NS 16 hourly 7. Daily CBC/CMP 8. Rocephin 1 gm 24 hourly 9. Zithromax 500 mg p.o. daily times three days 10. Sputum for culture and sensitivity 11. Blood cultures 12. Rapid Flu A & B 13. UA with culture and sensitivity 14. 1 cc Decadron IM today and q. a.m. 15. Accu-Cheks with sliding scale 16. Consult patient before giving insulin TIME SPENT: More than 70 minutes. MTDD
--- NOTE | 2017-07-03 10:59 | PCM.PROG ---
Attending Provider: ATTENDING PROVIDER: Dr. CHEN MERCER This patient is seen with Reva Guzmán, Nurse Practitioner. DATE OF SERVICE: 07/03/17 SUBJECTIVE: This 62 year old WHITE/ F was hospitalized 06/28/17. The patient is lying in bed, alert. Cough and shortness of breath not any better today. She had low grade fever last night. REVIEW OF SYSTEMS: CONSTITUTIONAL: Low grade temperature. No night sweats. No fatigue, malaise, lethargy. HEENT: Eyes: No visual changes. No eye pain. No eye discharge. ENT: No runny nose. No epistaxis. No sinus pain. No odynophagia. No congestion. RESPIRATORY: Cough and wheeze. No hemoptysis. Shortness of breath. CARDIOVASCULAR: No angina symptoms. No CHF symptoms. No atypical chest pain for CAD. No palpitations. No orthopnea.. GASTROINTESTINAL: No abdominal pain. No nausea or vomiting. No diarrhea or constipation. No hematemesis. No hematochezia. GENITOURINARY: No urgency. No frequency. No dysuria. No hematuria. No obstructive symptoms. No discharge. No pain. No significant abnormal bleeding. MUSCULOSKELETAL: No musculoskeletal pain; no joint swelling. NEUROLOGICAL: Awake, alert, oriented to time, place and person. No headache. No neck pain. No syncope. No seizures. No dizziness. PSYCHIATRIC: Not anxious. No depression. No suicidal thoughts. No homicidal thoughts. SKIN: No rash. No lesions. No wounds. ENDOCRINE: No unexplained weight loss. No weight gain. HEMATOLOGIC/LYMPHATIC: No anemia. No purpura. No petechiae. No prolonged or excessive bleeding. No palpable lymph nodes. PHYSICAL EXAMINATION: GENERAL: The patient is awake, alert and oriented, lying in bed in no distress. VITAL SIGNS: Temperature 99.1 F, Pulse 65, Respiratory Rate 18, BP 117/61, Pulse Ox 96% HEENT: Head normocephalic, atraumatic. Eyes: Extraocular muscles are intact. Pupils are equal, round and reactive to light and accommodation. Ears: No lesions. Nose appeared normal. Throat: No exudate or erythema. NECK: Supple. No JVD, no carotid bruit. No lymphadenopathy or thyromegaly. LUNGS: Diminished breath sounds bilaterally with expiratory wheeze on right. Percussion note normal. Chest symmetrical. HEART: S1, S2, no S3. No murmurs. No cyanosis or clubbing. No ascites. Pulses: Dorsalis pedis and posterior tibial pulses +1 to +2 both sides. ABDOMEN: Soft. Non-tender. Bowel sounds active. No CVA tenderness. No mass felt. EXTREMITIES: No edema. Full range of motion of all extremities, equal. NEUROLOGIC: No focal deficit. Cranial nerves II through XII are grossly intact. No headache, no double vision or headache. SKIN: Not dry. Intact. Turgor-normal. LYMPHATIC: No palpable lymph nodes/no lymphedema. MUSCULOSKELETAL: Normal joints with no swelling. Muscle tone is normal. LAB REVIEW: 07/03/17 04:30 07/03/17 04:30 07/03/17 04:30: Sodium 134 L, Potassium 4.0, Chloride 102, Carbon Dioxide 27, Anion Gap 9.0, BUN 23 H, Creatinine 1.58 H, Estimated GFR (MDRD) 33.00, BUN/ Creatinine Ratio 14.55, Glucose 223 H, Calcium 8.5, Total Bilirubin 0.3, AST 19 , ALT 11 L, Alkaline Phosphatase 77, Total Protein 5.8, Albumin 2.6 L, Globulin 3.2, Albumin/Globulin Ratio 0.81 07/03/17 04:30: PT 13.4 H D, INR 1.32 07/03/17 04:30: WBC 8.18, RBC 4.08 L, Hgb 12.4, Hct 36.6 L, MCV 89.7, MCH 30.4, MCHC 33.9, RDW Coeff of Boni 12.8, Plt Count 280, Immature Gran % (Auto) 4.9, Neut % (Auto) 55.7, Lymph % (Auto) 28.2, Bailey % (Auto) 10.0, Eos % (Auto) 0.5, Baso % (Auto) 0.7, Immature Gran # (Auto) 0.4, Neut # 4.6, Lymph # 2.3, Bailey # 0.8, Eos # 0.0, Baso # 0.1 07/02/17 04:50: PT 18.4 H D, INR 1.83 ASSESSMENT: 1. Acute pneumonitis improving 2. Flu-like syndrome improving 3. Type 1 Diabetic 4. Chronic kidney disease 5. Hyponatremia PLAN: 1. Repeat chest x-ray 2. Prednisone 20 mg p.o. b.i.d. 3. Continue Xopenex 4. D/C Decadron Plan and coordination of the patient's care discussed in the presence of Retail Seasonal Specialist and nurse. CONDITION: Stable SCRIBED BY: TEVIN MITCHELL Wood Flooring Specialist scribed while in presence of service performed by Dr. Mercer/Reva Guzmná APRN on 07/03/17 ([id number])
--- NOTE | 2017-07-03 11:24 | DI ---
EXAM: Chest two views HISTORY: Shortness of air COMPARISON: 06/28/2017 TECHNIQUE: Two views of the chest were performed FINDINGS: No airspace consolidation. Granulomatous calcification. There is no pleural effusion or pneumothorax. The heart is normal in size. The mediastinal contour is normal. Median sternotomy wi res. Atherosclerosis.. There are no acute abnormalities of the bones. Right cervical rib noted. IMPRESSION: No acute cardiopulmonary process.
[2017-07-03] MEDS: ZOCOR PO SCH (20:10)
[2017-07-03] MEDS: TAGAMET PO SCH (20:10)
[2017-07-03] MEDS: CALCITRIOL PO SCH (20:11)
[2017-07-04] MEDS: XOPENEX 1.25 MG NEB SCH (05:12)
[2017-07-04] MEDS: HUMALOG SUBCUT PRN (05:39)
[2017-07-04 06:18] VITALS: BP 135/61; TEMP 98.5
[2017-07-04] MEDS: ROCEPHIN 1 GM in SODIUM CHLORIDE 50 ML IV SCH (08:23)
[2017-07-04] MEDS: LANTUS SUBCUT SCH (08:23)
[2017-07-04] MEDS: TUSSIONEX PO SCH (08:24)
[2017-07-04] MEDS: PREDNISONE PO SCH (08:25)
[2017-07-04] MEDS: PLETAL PO SCH (08:25)
[2017-07-04] MEDS: FOLIC ACID PO SCH (08:25)
[2017-07-04] MEDS: FERROUS SULFATE PO SCH (08:25)
[2017-07-04] MEDS: ASPIRIN EC PO SCH (08:25)
[2017-07-04] MEDS: K-DUR PO SCH (08:25)
[2017-07-04] MEDS: BETAPACE PO SCH (08:26)
[2017-07-04] MEDS ORDERED: KEFLEX PO STA (08:56)
--- NOTE | 2017-07-04 10:02 | PCM.PROG ---
Attending Provider: ATTENDING PROVIDER: Dr. CHEN MERCER This patient is seen with Reva Guzmán, Nurse Practitioner. DATE OF SERVICE: 07/04/17 SUBJECTIVE: This 62 year old WHITE/ F was hospitalized 06/28/17. The patient is lying in bed, alert. Cough is better. Fatigue improved. She would like to go home today. REVIEW OF SYSTEMS: CONSTITUTIONAL: Fatigue. No night sweats. No fever or chills. HEENT: Eyes: No visual changes. No eye pain. No eye discharge. ENT: No runny nose. No epistaxis. No sinus pain. No odynophagia. No congestion. RESPIRATORY: Cough and congestion. No hemoptysis. No shortness of breath. CARDIOVASCULAR: No angina symptoms. No CHF symptoms. No atypical chest pain for CAD. No palpitations. No orthopnea.. GASTROINTESTINAL: No abdominal pain. No nausea or vomiting. No diarrhea or constipation. No hematemesis. No hematochezia. GENITOURINARY: No urgency. No frequency. No dysuria. No hematuria. No obstructive symptoms. No discharge. No pain. No significant abnormal bleeding. MUSCULOSKELETAL: No musculoskeletal pain; no joint swelling. NEUROLOGICAL: Awake, alert, oriented to time, place and person. No headache. No neck pain. No syncope. No seizures. No dizziness. PSYCHIATRIC: Not anxious. No depression. No suicidal thoughts. No homicidal thoughts. SKIN: No rash. No lesions. No wounds. ENDOCRINE: No unexplained weight loss. No weight gain. HEMATOLOGIC/LYMPHATIC: No anemia. No purpura. No petechiae. No prolonged or excessive bleeding. No palpable lymph nodes. PHYSICAL EXAMINATION: GENERAL: The patient is awake, alert and oriented, lying/sitting in bed in no distress. VITAL SIGNS: Temperature 98.5 F, Pulse 66, Respiratory Rate 16, BP 135/61, Pulse Ox 95% HEENT: Head normocephalic, atraumatic. Eyes: Extraocular muscles are intact. Pupils are equal, round and reactive to light and accommodation. Ears: No lesions. Nose appeared normal. Throat: No exudate or erythema. NECK: Supple. No JVD, no carotid bruit. No lymphadenopathy or thyromegaly. LUNGS: Diminished breath sounds bilaterally. Clear to auscultation. Percussion note normal. Chest symmetrical. HEART: S1, S2, no S3. No murmurs. No cyanosis or clubbing. No ascites. Pulses: Dorsalis pedis and posterior tibial pulses +1 to +2 both sides. ABDOMEN: Soft. Non-tender. Bowel sounds active. No CVA tenderness. No mass felt. EXTREMITIES: No edema. Full range of motion of all extremities, equal. NEUROLOGIC: No focal deficit. Cranial nerves II through XII are grossly intact. No headache, no double vision or headache. SKIN: Not dry. Intact. Turgor-normal. LYMPHATIC: No palpable lymph nodes/no lymphedema. MUSCULOSKELETAL: Normal joints with no swelling. Muscle tone is normal. LAB REVIEW: 07/04/17 04:09 07/04/17 04:09 07/04/17 04:09: Sodium 135 L, Potassium 4.5, Chloride 103, Carbon Dioxide 25, Anion Gap 11.5, BUN 24 H, Creatinine 1.53 H, Estimated GFR (MDRD) 34.00, BUN/ Creatinine Ratio 15.68, Glucose 233 H, Calcium 8.6, Total Bilirubin 0.3, AST 21 , ALT 12, Alkaline Phosphatase 68, Total Protein 6.1, Albumin 2.7 L, Globulin 3.4, Albumin/Globulin Ratio 0.79 07/04/17 04:09: PT 11.3 H, INR 1.11 07/04/17 04:09: WBC 8.70, RBC 4.07 L, Hgb 12.5, Hct 36.7 L, MCV 90.2, MCH 30.7, MCHC 34.1, RDW Coeff of Boni 13.1, Plt Count 291, Neutrophils % (Manual) 74.0, Band Neutrophils % 1.0, Lymphocytes % (Manual) 13.0, Monocytes % (Manual) 8.0, Reactive Lymphocytes 4.0, Anisocytosis Not present ASSESSMENT: 1. Acute pneumonitis improving 2. Flu-like syndrome improving 3. Type 1 Diabetic 4. Chronic kidney disease 5. Hyponatremia PLAN: 1. D/C home 2. Keflex 500 mg t.i.d. for 7 days 3. Prednisone 20 mg times two days b.i.d. and 10 b.i.d. times five days 4. Tussionex for cough 5. Duonebs 6. Neb treatment three times a day until cough resolves 7. Will see Saturday in the office Plan and coordination of the patient's care discussed in the presence of Foil Spinner and nurse. CONDITION: Stable SCRIBED BY: TEVIN MITCHELL Database Admin scribed while in presence of service performed by Dr. Mercer/Reva Guzmán APRN on 07/04/17 ([id number])
--- NOTE | 2017-07-04 10:36 | CM.DICTOOL ---
ADMISSION: 06/28/17 12:44 DISCHARGE: 07/04/17 DATE OF SERVICE: 07/04/17 FINAL DIAGNOSIS PNEUMONITIS FLU LIKE SYNDROME DM, TYPE 1 CAD S/P CABG, 2014 HYPERTENSION DYSLIPIDEMIA KIDNEY DISEASE S/P STENT APPLICATION X2 CVA, 1989' GERD TONSILLECTOMY MEGAN CHOLECYSTECTOMY HEART CATH, 2001 CARPAL TUNNEL RELEASE RENAL STENTS, X2 FORMER SMOKER, NONE SINCE 2000 LAST VITALS Temp Pulse Resp BP Pulse Ox 98.5 F 66 16 135/61 95 07/04/17 06:00 07/04/17 06:00 07/04/17 06:00 07/04/17 06:00 07/04/17 06:00 ACTIVE HOME MEDICATIONS Acetaminophen/Hydrocodone Bitart ([place] 10-325) 1 tab PO TID PRN PRN Reason: pain Last Admin: 07/01/17 20:59 Dose: 1 tab Alprazolam (Xanax) 0.5 mg PO TID PRN PRN Reason: Anxiety Aspir[facility]in Ec) [facility] Last Admin: 07/04/17 08:25 Dose: 325 mg Cetirizine HCl (Zyrtec) 10 mg PO DAILY PRN PRN Reason: allergies Cilostazol (Pletal) 100 mg PO BID [facility] Last Admin: 07/04/17 08:25 Dose: 100 mg Cimetidine (Tagamet) 800 mg PO BEDTIME [facility] Last Admin: 07/03/17 20:10 Dose: 800 mg Ergocalciferol (Drisdol) 50,000 unit PO WEEKLY [facility] Ferrous Sulfate (Ferrous Sulfate) 324 mg PO DAILY [facility] Last Admin: 07/04/17 08:25 Dose: 324 mg Folic Acid (Folic Acid) 3 mg PO DAILY [facility] Last Admin: 07/04/17 08:25 Dose: 3 mg Insulin Glargine (Lantus) 30 unit SUBCUT QAM [facility] Last Admin: 07/04/17 08:23 Dose: 30 unit Insulin Human Lispro (Humalog) 0 unit SUBCUT QID PRN PRN Reason: HYPERGLYCEMIA Last Admin: 07/04/17 05:39 Dose: 8 unit Nitroglycerin (Nitrostat) 0.4 mg SL PRN PRN PRN Reason: Chest Pain Calcitriol [Calcitriol] 1 cap PO BEDTIME [facility] Last Admin: 07/03/17 20:11 Dose: Not Given Propylene Glycol/Peg 400/Pf [Systane Ultra 0.4-0.3% Eye Drp] 1 each OP DAILY PRN PRN Reason: dry eyes Potassium Chloride (K-Dur) 20 meq PO TIDWM [facility] Last Admin: 07/04/17 08:25 Dose: 20 meq Simvastatin (Zocor) 20 mg PO BEDTIME [facility] Last Admin: 07/03/17 20:10 Dose: 20 mg Sotalol HCl (Betapace) 40 mg PO BID [facility] Last Admin: 07/04/17 08:26 Dose: 40 mg Warfarin Sodium (Coumadin) 7 mg PO 1700 [facility] Last Admin: 06/29/17 16:40 Dose: 7 mg ALLERGIES clopidogrel bisulfate [From Plavix] Adverse Reaction (Verified 12/31/13 15:08) erythromycin base [Erythromycin Base] Adverse Reaction (Verified 12/31/13 15:08) ibuprofen Adverse Reaction (Verified 12/31/13 15:08) insulin detemir [From Levemir] Adverse Reaction (Verified 12/31/13 15:08) insulin NPH human isophane [From Humulin 70/30] Adverse Reaction (Verified 12/31 15:08) insulin regular, human [From Humulin 70/30] Adverse Reaction (Verified 12/31/13 15:08) iodine Adverse Reaction (Verified 12/31/13 15:08) topiramate [From Topamax] Adverse Reaction (Verified 12/31/13 15:08) NEW PRESCRIPTIONS: IPRATROPIUM/ALBUTEROL (DUONEBS), TAKE ONE NEB TREATMENT THREE TIMES DAILY UNTIL YOU ARE NO LONGER COUGHING (#90) DISPOSABLE NEB SETS (TUBING) (QS 1 MONTH) KEFLEX 500 MG, TAKE ONE CAPSULE BY MOUTH THREE TIMES DAILY FOR 7 DAYS PREDNISONE 10 MG, TAKE TWO TABLETS (20 MG) BY MOUTH TWICE DAILY FOR 2 DAYS, THEN TAKE ONE TABLET (10 MG) BY MOUTH TWICE DAILY FOR 5 DAYS. TAKE THIS MEDICATION WITH FOOD CHLORPHENIR/HYDROCODONE POLISTIREX (TUSSIONEX) 5 ML, TAKE 5 ML BY MOUTH TWICE DAILY IF NEEDED FOR COUGHING (PRN) SMOKING: FORMER SMOKER NONE NOW DISEASE SPECIFIC EDUCATION: BRONCHITIS FLU PREVENTION DIABETIC MANAGEMENT HOME MEDICATIONS NEW PRESCRIPTIONS RISKS OF [facility] STEROID USE NEBULIZED BREATHING TREATMENTS FOLLOW UP LAB REVIEW: 07/04/17 04:09 07/04/17 04:09 07/04/17 04:09: Sodium 135 L, Potassium 4.5, Chloride 103, Carbon Dioxide 25, Anion Gap 11.5, BUN 24 H, Creatinine 1.53 H, Estimated GFR (MDRD) 34.00, BUN/ Creatinine Ratio 15.68, Glucose 233 H, Calcium 8.6, Total Bilirubin 0.3, AST 21 , ALT 12, Alkaline Phosphatase 68, Total Protein 6.1, Albumin 2.7 L, Globulin 3.4, Albumin/Globulin Ratio 0.79 07/04/17 04:09: PT 11.3 H, INR 1.11 07/04/17 04:09: WBC 8.70, RBC 4.07 L, Hgb 12.5, Hct 36.7 L, MCV 90.2, MCH 30.7, MCHC 34.1, RDW Coeff of Boni 13.1, Plt Count 291, Neutrophils % (Manual) 74.0, Band Neutrophils % 1.0, Lymphocytes % (Manual) 13.0, Monocytes % (Manual) 8.0, Reactive Lymphocytes 4.0, Anisocytosis Not present PLAN: DISCHARGE HOME TODAY RETURN TO SEE DR. MERCER ON 07/08/17 AT 11:30 P.M. RESUME YOUR HOME MEDICATIONS PER LIST PROVIDED BY THE NURSING STAFF TAKE ONE EXTRA COUMADIN 7 MG BY MOUTH THIS EVENING TO TOTAL 14 MG NEW PRESCRIPTIONS IPRATROPIUM/ALBUTEROL (DUONEBS), TAKE ONE NEB TREATMENT THREE TIMES DAILY UNTIL YOU ARE NO LONGER COUGHING (#90) DISPOSABLE NEB SETS (TUBING) (QS 1 MONTH) KEFLEX 500 MG, TAKE ONE CAPSULE BY MOUTH THREE TIMES DAILY FOR 7 DAYS PREDNISONE 10 MG, TAKE TWO TABLETS (20 MG) BY MOUTH TWICE DAILY FOR 2 DAYS, THEN TAKE ONE TABLET (10 MG) BY MOUTH TWICE DAILY FOR 5 DAYS. TAKE THIS MEDICATION WITH FOOD CHLORPHENIR/HYDROCODONE POLISTIREX (TUSSIONEX) 5 ML, TAKE 5 ML BY MOUTH TWICE DAILY IF NEEDED FOR COUGHING (PRN) ACTIVITY GET PLENTY OF REST AT HOME. GRADUALLY INCREASE YOUR ACTIVITY LEVEL ACCORDING TO YOUR TOLERATION DIET HEALTHY HEART TOLERATED DRINK PLENTY OF LIQUIDS TO STAY HYDRATED SUMMARY THE PATIENT IS ALERT AND ORIENTED X3. SHE CURRENTLY RESIDES AT HOME WITH HER SPOUSE. SHE IS INDEPENDENT WITH ADL'S. SHE USES A QUAD CANE TO ASSIST WITH AMBULATION. SHE HAS AN ELECTRIC SCOOTER BUT DOES NOT USE IT OFTEN. SHE ALSO HAS A GLUCOMETER AND TESTING SUPPLIES TO MONITOR HER BLOOD SUGARS. SHE HAS A NEBULIZER BUT SAYS SHE NEEDS NEW TUBING IN ORDER TO SELF-ADMINISTER BREATHING TREATMENTS AT HOME. WE HAVE PROVIDED PRESCRIPTION FOR THESE SUPPLIES. CASE MANAGEMENT HAS ASSURED US THAT [facility] HERE IN [facility] CARRIES THE TUBING NECESSARY. MS. PICKARD WILL RETURN HOME AT DISCHARGE. HER SKIN TURGOR IS INTACT AND WITHOUT DECUBITUS ULCERS. THE NUTRITIONAL AND HYDRATION STATUS ARE GOOD. SHE IS AFEBRILE AND HAS SHOWN POSITIVE CLINICAL RESULTS FROM THE IN PATIENT TREATMENT PROVIDED. WE WILL FOLLOW HER THROUGH THE OFFICE AFTER DISCHARGE. SHE IS AWARE AND AGREEABLE FOR TODAY'S DISCHARGE PLANS. CURRENT CODE STATUS FULL CODE ALFRED KINSEY APRN CHEN MERCER M.D.
[2017-07-04] MEDS ORDERED: XOPENEX 1.25 MG NEB SCH (14:00)
[2017-07-05] MEDS ORDERED: DRISDOL PO SCH (09:00)
--- NOTE | 2017-07-08 15:20 | PN ---
DATE OF SERVICE: 07/03/17 SUBJECTIVE: 62 year old white female hospitalized with acute bronchitis and flu type of symptoms. The patient is still wheezing some. PHYSICAL EXAMINATION: HEENT: Head normocephalic, atraumatic. Eyes: Extraocular muscles are intact. Pupils are equal, round and reactive to light and accommodation. Ears: No lesions. Nose appeared normal. Throat: No exudate or erythema. NECK: Supple. No JVD, no carotid bruit. No lymphadenopathy or thyromegaly. LUNGS: Decreased breath sounds with mild wheeze. Percussion note normal. Chest symmetrical. HEART: S1, S2, no S3. No murmurs. No cyanosis or clubbing. No ascites. Pulses: Dorsalis pedis and posterior tibial pulses +1 to +2 both sides. ABDOMEN: Soft. Nontender. Bowel sounds active. No CVA tenderness. No mass felt. EXTREMITIES: No edema. Full range of motion of all extremities, equal. NEUROLOGIC: No focal deficit. Cranial nerves II through XII are grossly intact. No headache, no double vision or headache. SKIN: Not dry. Intact. Turgor - normal. LYMPHATIC: No palpable lymph nodes/no lymphedema. MUSCULOSKELETAL: Normal joints with no swelling. Muscle tone is normal. CONDITION: Stable PLAN: 1. Continue to give her steroids and antibiotics. The patient was seen and examined with Nurse Practitioner. TIME SPENT: More than 30 minutes. Plan and coordination of the patient's care discussed in the presence of nurse. SHERRY
--- NOTE | 2017-07-09 07:30 | PN ---
DATE OF SERVICE: 07/04/17 SUBJECTIVE: The patient was seen this morning and doing well. Coughing much less. Lungs are clear with no wheezing. Cardiovascular status and respiratory status is stable. The patient is feeling better with good appetite. The patient will be discharged home on antibiotics, steroids. TIME SPENT: More than 30 minutes. Plan and coordination of the patient's care discussed in the presence of nurse. SHERRY
--- NOTE | 2017-07-09 07:31 | PN ---
06/28/17: Level 5 06/29/17: Intermediate 06/30/17: Intermediate 07/01/17: Intermediate 07/02/17: Intermediate 07/03/17: Brief 07/04/17: D as in discharge MTDD
--- NOTE | 2017-07-21 13:42 | PN ---
DATE OF SERVICE: 07/02/17 SUBJECTIVE: 62-year-old white female hospitalized with pneumonitis. The patient's condition has improved from yesterday, feeling somewhat better. She had wheezing, cough that has been under control. PHYSICAL EXAMINATION: HEENT: Head normocephalic, atraumatic. Eyes: Extraocular muscles are intact. Pupils are equal, round and reactive to light and accommodation. Ears: No lesions. Nose appeared normal. Throat: No exudate or erythema. NECK: Supple. No JVD, no carotid bruit. No lymphadenopathy or thyromegaly. LUNGS: Decreased breath sounds. Clear to auscultation. Percussion note normal. Chest symmetrical. HEART: S1, S2, no S3. No murmurs. No cyanosis or clubbing. No ascites. Pulses: Dorsalis pedis and posterior tibial pulses +1 to +2 both sides. ABDOMEN: Soft. Nontender. Bowel sounds active. No CVA tenderness. No mass felt. EXTREMITIES: No edema. Full range of motion of all extremities, equal. NEUROLOGIC: No focal deficit. Cranial nerves II through XII are grossly intact. No headache, no double vision or headache. SKIN: Not dry. Intact. Turgor - normal. LYMPHATIC: No palpable lymph nodes/no lymphedema. MUSCULOSKELETAL: Normal joints with no swelling. Muscle tone is normal. LABS: The patient's kidney functions are stable 1.3, 24, creatinine and BUN respectively. White blood cell count is 7,500. CONDITION: Stable. The patient was seen and examined with nurse practitioner. TIME SPENT: More than 30 minutes. Plan and coordination of the patient's care discussed in the presence of nurse. SHERRY
--- NOTE | 2017-07-24 13:07 | DS ---
DATE OF SERVICE: 07/04/17 FINAL DIAGNOSIS: 1. PNEUMONITIS 2. FLU LIKE SYNDROME 3. DIABETES MELLITUS TYPE 1 4. CAD STATUS POST CABG, 2013 5. HYPERTENSION 6. DYSLIPIDEMIA 7. KIDNEY DISEASE STATUS POST STENT APPLICATION TIMES TWO 8. CVA, 9. GERD 10. TONSILLECTOMY 11. 12. MEGAN 13. CHOLECYSTECTOMY 14. HEART CATH, 2001 15. CARPAL TUNNEL RELEASE 16. RENAL STENTS TIMES TWO 17. FORMER SMOKER, NONE SINCE 2000 LAST V/S: Temperature 98.5, pulse 66, respiratory rate 16, BP 135/61, pulse ox 95 DISCHARGE INSTRUCTIONS: Followup appointment with Dr. Huggins on 07/08/17 at 11:30 p.m. MEDICATIONS AT DISCHARGE: [place] one tab p.o. t.i.d. p.r.n. Xanax 0.5 mg p.o. t.i.d. p.r.n. Aspirin 325 mg p.o. daily with meal NAKUL Zyrtec 10 mg p.o. daily p.r.n. Pletal 100 mg p.o. b.i.d. NAK[facility] Tagamet 800 mg p.o. bedtime [facility] Drisdol 50,000 unit p.o. weekly [facility] Ferrous Sulfate 324 mg p.o. daily [facility] Folic Acid 3 mg p.o. daily [facility] Lantus 30 unit Subcut q.a.m. NAK[facility] Humalog 0 unit Subcut q.i.d. p.r.n. Nitrostat 0.4 mg SL p.r.n. Calcitriol one cap p.o. bedtime [facility] Systane one each OP daily p.r.n. K-Dur 20 mEq p.o. t.i.d. with meal [facility]AK[facility] Zocor 20 mg p.o. bedtime [facility] Betapace 40 mg p.o. b.i.d. NAKUL Coumadin 7 mg p.o. 1700 [facility] NEW PRESCRIPTIONS: 1. Duonebs take one neb treatment t.i.d. until you are no longer coughing 2. Disposable neb sets (tubing) (QS one month) 3. Keflex 500 mg, take one capsule p.o. t.i.d. for 7 days 4. Prednisone 10 mg, take two tablets (20 mg) p.o. twice daily for 2 days then one tablet 10 mg by mouth twice daily for 5 days. Take this medication with food 5. Chlorphenol/Hydrocodone Polistirex (Tussionex) 5 mL, take 5 mL by mouth twice daily if needed for coughing (p.r.n) DIET INSTRUCTIONS: Healthy Heart as tolerated Drink plenty of liquids to stay hydrated ACTIVITY: Get plenty of rest at home. Gradually increase your activity level according to your toleration. SMOKING: Former smoker, none now DISEASE SPECIFIC EDUCATION: Bronchitis Flu prevention Diabetic management Home medications New prescriptions Risks of long-term steroid use Nebulized breathing treatments Follow up HOSPITAL COURSE: This 62-year-old white female who is a direct admit from our office. She was experiencing some shortness of breath, generalized weakness, cough, low grade fever. She was admitted. She was negative for the flu although she had flu- like syndrome. Her chest x-ray showed no pneumonia although she does have severe bronchitis. She was placed on Rocephin 1 gm IV daily along with Decadron 4 mg IV daily. We started her on Xopenex neb treatments 1.25 mg q.6hr. All of her home medications were continued. She is a Type I brittle diabetic. Her blood sugar has been slightly elevated due to steroid therapy but has been rather controlled. Her INR was elevated the second day of admission at 3.7 and Coumadin was held for one day. Today, on day of discharge, her INR is 1.2. She has been instructed to take 2 mg of extra Coumadin tonight. She will go home on Keflex 500 mg t.i.d. for the next 7 days along with Prednisone 20 mg b.i.d. times two days and then 10 mg b.i.d. times five days along with Tussionex for cough. She has nebulizer machine at home and will do Albuterol treatments at least 3 times a day until her cough resolves. It has taken her several days to get over this. She would experience some improvement some days and then yesterday she was more congested. Her cough was more productive and she was more weak. This morning her lungs seemed significantly improved. A repeat chest x-ray was done yesterday which still showed no pneumonia. Her kidney function - she has chronic kidney disease and has been slightly elevated although has improved with the use of IV fluids. Today her BUN is 24 and creatinine 1.53, sodium 135 and potassium 4.5. Her vital signs have been stable for the past 24 hours. She has been up and about walking around with minimal shortness of breath with exertion. She has been eating 75 to 100% of her meals and has been afebrile for the past 2 days. She is agreeable to go home. She has her at home to help her. She will go home today with his help and then follow up with his in the office on Saturday. TIME SPENT: More than 60 minutes. SHERRY
== END 2017-07-04 12:49 | disposition home or self-care (01) | DRG 194 ==
LOC: MEDSURG B 12:44
PROVIDERS: ADMIT Internal Medicine; ATTEND Internal Medicine
DX: J18.9 Pneumonia, unspecified organism (principal); E87.1 Hypo-osmolality and hyponatremia; J20.9 Acute bronchitis, unspecified; R68.89 Other general symptoms and signs; E86.0 Dehydration; R79.1 Abnormal coagulation profile; E87.6 Hypokalemia; R50.9 Fever, unspecified; I12.9 Hypertensive chronic kidney disease with stage 1 through stage 4 chronic kidney disease, or unspecified chronic kidney disease; E10.22 Type 1 diabetes mellitus with diabetic chronic kidney disease; N18.3 Chronic kidney disease, stage 3 (moderate); I25.10 Atherosclerotic heart disease of native coronary artery without angina pectoris; I10 Essential (primary) hypertension; E78.5 Hyperlipidemia, unspecified; I25.2 Old myocardial infarction; Z86.73 Personal history of transient ischemic attack (TIA), and cerebral infarction without residual deficits; Z79.01 Long term (current) use of anticoagulants; Z79.4 Long term (current) use of insulin; Z87.448 Personal history of other diseases of urinary system; Z87.891 Personal history of nicotine dependence; Z95.1 Presence of aortocoronary bypass graft
CPT/HCPCS: 36415; 80053; 81001; 82550; 82803; 82962; 84439; 84443; 84484; 85007; 85025; 85610; 87040; 87070; 87502; 93005; 93010; 94640; 99223; 99232; 99239

== ENCOUNTER 2017-10-01 16:30 | Inpatient (IN) ==
[2017-10-01 16:37] VITALS: BMI 31.0
[2017-10-01] MEDS ORDERED: NITROSTAT SL PRN ×2 (17:54→20:40)
[2017-10-01] MEDS ORDERED: NORCO 10-325 PO PRN (17:54)
[2017-10-01] MEDS ORDERED: ROCEPHIN 1 GM in SODIUM CHLORIDE 50 ML IV STA (17:57)
[2017-10-01] MEDS ORDERED: VANCOMYCIN 1 GM in SODIUM CHLORIDE 250 ML IV STA (17:58)
--- NOTE | 2017-10-01 17:59 | ED.PDOC ---
General ED Provider: Dr. JOAN VELEZ Chief Complaint: Hand Pain/Injury Stated Complaint: RIGHT HAND PAIN AND RASH Time Seen by Physician: 16:33 (SEE PHOTOS PT SEEN WITH RAJAT AT ALL TIMES NO INJURY REPORTED ) Mode of Arrival: Wheelchair Information Source: Patient, Family Exam Limitations: No limitations Primary Care Provider: CHEN MERCER Nursing and Triage Documentation Reviewed and Agree: Yes (NO INSECT BITE) Reviewed sepsis parameters & appropriate labs ordered?: Yes System Inflammatory Response Syndrome: Not Applicable Sepsis Protocol: For patient's 13 years and over: Temp is 96.8 and below OR 101 and greater Pulse >90 BPM Resp >20/minute Acutely Altered Mental Status Are patient's symptoms suggestive of a new infection, such as: -Pneumonia -Skin, Soft Tissue -Endocarditis -UTI -Bone, Joint Infection -Implantable Device -Acute Abdominal Infection -Wound Infection -Meningitis -Blood Stream Catheter Infection -Unknown System Inflammatory Response Syndrome: Not Applicable Skin Complaint Exam - Skin/Soft Tissue Complaint/Exam Onset/Duration: RASH AND PAIN LEFT HAND, WRISTX 2 DAYS SEE PHOTOS Symptoms Are: Still present Timing: Constant Initial Severity: Moderate Current Severity: Moderate Character: Reports: Redness, Painful. Denies: Swelling, Raised Aggravating: Reports: Touch Alleviating: Reports: None Associated Signs and Symptoms: Reports: Tenderness. Denies: Fever, Chills, Itching, Drainage, Bruising, Red streaks, Joint swelling Related History: Denies: Similar episode, Recent trauma, Foreign body, Insect bite/sting, Recent Med change, Prior MRSA/VRE, Recent inpatient, Recent travel, Immunocompromised Related Surgical History: Reports: None Recent Exposure to Others w/Similar Symptoms: No Skin Findings: Present: Erythema Joint Tenderness Present: No Differential Diagnoses: Cellulitis Review of Systems - Review Of Systems Constitutional: Reports: No symptoms Eyes: Reports: No symptoms Ears, Nose, Mouth, Throat: Reports: No symptoms Respiratory: Reports: No symptoms Cardiac: Reports: No symptoms GI: Reports: No symptoms : Reports: No symptoms Musculoskeletal: Reports: No symptoms Skin: Reports: Other (RED RASH LEFT HAND TENDER ) Neurological: Reports: No symptoms Endocrine: Reports: No symptoms Hematologic/Lymphatic: Reports: No symptoms All Other Systems: Reviewed and Negative Past Medical History - Past Medical History Previously Healthy: Yes Endocrine: Reports: DM 2 Cardiovascular: Reports: Hypertension Respiratory: Reports: None Hematological: Reports: None Gastrointestinal: Reports: None Genitourinary: Reports: None Neuro/Psych: Reports: None Musculoskeletal: Reports: None Cancer: Reports: None Last Menstrual Period: none - Surgical History General Surgical History: Reports: None - Family History Family History: Reports: None - Social History Smoking Status: Former smoker Hx Substance Use: No Alcohol Screening: None Physical Exam - Physical Exam Appearance: Ill-appearing Ill-appearing: Mild Pain Distress: Moderate (LEFT HAND AND WRIST) Eyes: JESSICA, EOMI, Conjunctiva clear ENT: Ears normal, Nose normal, Oropharynx normal Respiratory: Airway patent, Breath sounds clear, Breath sounds equal, Respirations nonlabored Cardiovascular: RRR, Pulses normal, No rub, No murmur GI/: Soft, Nontender, No masses, Bowel sounds normal, No Organomegaly Musculoskeletal: Normal strength, ROM intact, No edema, No calf tenderness Skin: Warm, Dry (TENDER LEFT HAND ) Neurological: Sensation intact, Motor intact, Reflexes intact, Cranial nerves intact, Alert, Oriented Psychiatric: Affect appropriate, Mood appropriate Physician Notification - Case Discussed Physician Notified: PMD Time of Notification: 18:03 (ADMITT) Admit To: Inpatient Critical Care Note - Critical Care Note Total Time (mins): 0 Course - Course Hematology/Chemistry: 10/01/17 17:21 10/01/17 17:21 Orders, Labs, Meds: Lab Review 10/01/17 10/01/17 17:21 17:21 WBC 9.28 RBC 4.15 L Hgb 12.6 Hct 37.6 MCV 90.6 MCH 30.4 MCHC 33.5 RDW Coeff of Boni 13.2 Plt Count 252 Immature Gran % (Auto) 0.4 Neut % (Auto) 74.8 Lymph % (Auto) 16.8 Bent % (Auto) 6.5 Eos % (Auto) 1.2 Baso % (Auto) 0.3 Immature Gran # (Auto) 0.0 Neut # (Auto) 6.9 Lymph # (Auto) 1.6 Bent # (Auto) 0.6 Eos # (Auto) 0.1 Baso # (Auto) 0.0 Sodium 138 Potassium 4.7 Chloride 104 Carbon Dioxide 25 Anion Gap 13.7 BUN 28 H Creatinine 1.71 H Estimated GFR (MDRD) 30.00 BUN/Creatinine Ratio 16.37 Glucose 128 H Calcium 9.1 Total Bilirubin 0.3 AST 78 H ALT 36 Alkaline Phosphatase 73 Total Protein 6.9 Albumin 3.3 L Globulin 3.6 Albumin/Globulin Ratio 0.92 Orders Category Date Time Status BLOOD CULTURE Stat LAB 10/01/17 17:07 Received CBC W/ AUTO DIFF Stat LAB 10/01/17 17:21 Completed COMPREHENSIVE METABOLIC PANEL Stat LAB 10/01/17 17:21 Completed PROCALCITONIN Stat LAB 10/01/17 17:21 Received FOREARM, LEFT 2 VIEWS Stat RADS 10/01/17 17:07 Ordered HAND, LEFT 3 VIEWS Stat RADS 10/01/17 17:03 Ordered WRIST, LEFT 3 VIEWS Stat RADS 10/01/17 17:03 Ordered Vital Signs: Temp Pulse Resp BP Pulse Ox 10/01/17 16:31 98.2 F 88 18 115/66 95 Departure - Departure Time of Disposition: 18:03 Disposition: ADMITTED INPATIENT Discharge Problem: Hand pain, Cellulitis of left hand Instructions: Cellulitis (ED) Condition: Good Pt referred to PMD for follow-up: Yes IPMP verified?: No Additional Instructions: Please call your Family Physician as soon as possible to schedule a follow-up appointment. Allergies/Adverse Reactions: Allergies clopidogrel bisulfate [From Plavix] Adverse Reaction (Verified 10/01/17 16:38) erythromycin base [Erythromycin Base] Adverse Reaction (Verified 10/01/17 16:38) ibuprofen Adverse Reaction (Verified 10/01/17 16:38) insulin detemir [From Levemir] Adverse Reaction (Verified 10/01/17 16:38) insulin NPH human isophane [From Humulin 70/30] Adverse Reaction (Verified 10/01 16:38) insulin regular, human [From Humulin 70/30] Adverse Reaction (Verified 10/01/17 16:38) iodine Adverse Reaction (Verified 10/01/17 16:38) latex Adverse Reaction (Verified 10/01/17 16:38) topiramate [From Topamax] Adverse Reaction (Verified 10/01/17 16:38) Home Medications: Ambulatory Orders Alprazolam [Xanax] 0.5 mg PO TID PRN 12/31/13 Aspirin [Aspirin EC] 325 mg PO DAILYWM 12/31/13 Cilostazol [Cilostazol] 100 mg PO BID 12/31/13 Cimetidine [Tagamet] 800 mg PO BEDTIME 12/31/13 Ergocalciferol (Vitamin D2) [Vitamin D2] 50,000 unit PO TU 12/31/13 Folic Acid [Folic Acid] 3 mg PO DAILY 12/31/13 Furosemide [Lasix] 80 mg PO BIDAC 12/31/13 Hydrocodone Bit/Acetaminophen [[place] 10-325] 1 each PO TID PRN 12/31/13 Insulin Glargine,Hum.rec.anlog [Lantus Solostar] 40 unit SQ DAILY 12/31/13 Iron 65 mg PO DAILY 12/31/13 Nitroglycerin [Nitrostat] 0.4 mg SL PRN PRN 12/31/13 Ondansetron HCl [Zofran] 4 mg PO TID PRN 12/31/13 Potassium Chloride [K-Dur] 20 meq PO TID 12/31/13 Propylene Glycol/Peg 400/Pf [Systane Ultra 0.4-0.3% Eye Drp] 1 each OP DAILY PRN 12/31/13 Simvastatin 20 mg PO BEDTIME 12/31/13 Sotalol HCl [Betapace] 40 mg PO BID 12/31/13 Warfarin Sodium [Coumadin] 7 mg PO 1700 12/31/13 Calcitriol 1 cap PO BEDTIME 05/11/14 Cetirizine HCl [Zyrtec] 10 mg PO DAILY PRN 06/28/17 Insulin Lispro [Humalog Kwikpen] 0 - 20 unit SQ QID PRN 06/28/17 Pantoprazole Sodium [Protonix] 40 mg PO BIDAC 06/28/17 Glucagon,Human Recombinant [Glucagon Emergency Kit] 1 mg IJ DIRECTED Leflunomide 10 mg PO DIRECTED 10/01/17 Lifitegrast [Xiidra] 1 each OP BID 10/01/17 Losartan Potassium [Cozaar] 25 mg PO DAILY 10/01/17
[2017-10-01] MEDS ORDERED: GLUCAGON HUMAN RECOMBINANT 1 MG IJ SCH (18:00)
[2017-10-01] MEDS ORDERED: MORPHINE 2 MG/ML SYRINGE IVP STA (18:00)
[2017-10-01] MEDS ORDERED: LEFLUNOMIDE 10 MG PO SCH (18:00)
[2017-10-01] MEDS ORDERED: ZOFRAN 4 MG/2 ML IVP STA (18:00)
[2017-10-01] MEDS ORDERED: HUMULIN R SUBCUT STA (18:04)
[2017-10-01] MEDS ORDERED: ROCEPHIN ONE (18:30)
[2017-10-01] MEDS: SODIUM CHLORIDE 1,000 ML IV SCH (20:30)
[2017-10-01] MEDS ORDERED: VISTARIL INJ IM PRN (20:40)
[2017-10-01] MEDS ORDERED: TYLENOL PO PRN (20:40)
[2017-10-01] MEDS ORDERED: ATROPINE SULFATE PFS IVP PRN (20:40)
[2017-10-01] MEDS ORDERED: MORPHINE 4 MG/ML VIAL IVP PRN (20:40)
[2017-10-01] MEDS ORDERED: NON-FORMULARY MEDICATION (Simvastatin [Simvastatin] 20 MG) PO SCH (21:00)
[2017-10-01] MEDS ORDERED: LIFITEGRAST OP SCH (21:00)
[2017-10-01] MEDS ORDERED: ZOCOR ONE (22:57)
[2017-10-01] MEDS: BETAPACE PO SCH (23:02)
[2017-10-01] MEDS: K-DUR PO SCH (23:02)
--- NOTE | 2017-10-02 05:40 | DI ---
EXAM: Left wrist three views HISTORY: Pain COMPARISON: None. FINDINGS: There is no acute fracture, dislocation or bony erosion. The surrounding soft tissues are unremarkable. IMPRESSION: No acute findings.
--- NOTE | 2017-10-02 05:41 | DI ---
EXAM: Left forearm two views HISTORY: Pain. COMPARISON: None. FINDINGS: There is no acute fracture or bony abnormality. The surrounding soft tissues are unremark able. IMPRESSION: No acute findings.
--- NOTE | 2017-10-02 05:41 | DI ---
EXAM: Left hand three views HISTORY: Pain COMPARISON: None. FINDINGS: There is no acute fracture, dislocation or bony abnormality. The surrounding soft tissues are unremarkable. IMPRESSION: No acute findings.
[2017-10-02] MEDS ORDERED: FUROSEMIDE 80 MG PO SCH (06:30)
[2017-10-02] MEDS ORDERED: LASIX TAB ONE (07:11)
[2017-10-02] MEDS: PROTONIX PO SCH ×2 (07:13→16:54)
--- NOTE | 2017-10-02 07:58 | DI ---
EXAM: Chest one view HISTORY: Syncope COMPARISON: 07/03/2017 TECHNIQUE: Single view of the chest was performed FINDINGS: No airspace consolidation. Granulomatous calcification. There is no pleural effusion or pneumothorax. The heart is normal in size. The mediastinal contour is normal, noting atherosclerosi s. Median sternotomy wires. There are no acute abnormalities of the bones. IMPRESSION: No acute cardiopulmonary process.
[2017-10-02] MEDS ORDERED: ASPIRIN EC PO SCH (08:00)
[2017-10-02] MEDS ORDERED: GLUCAGEN SUBCUT PRN (08:14)
[2017-10-02] MEDS ORDERED: DECADRON 4 MG/ML SDV IM STA (08:48)
[2017-10-02] MEDS ORDERED: LANTUS SUBCUT STA (08:50)
[2017-10-02] MEDS ORDERED: LIFITEGRAST OP SCH (09:00)
[2017-10-02] MEDS: BETAPACE PO SCH ×2 (09:08→20:41)
[2017-10-02] MEDS: ASPIRIN EC PO SCH (09:08)
[2017-10-02] MEDS: COZAAR PO SCH (09:09)
[2017-10-02] MEDS: K-DUR PO SCH ×3 (09:10→20:41)
[2017-10-02] MEDS: ROCEPHIN 1 GM in SODIUM CHLORIDE 50 ML IV SCH (09:26)
[2017-10-02] MEDS ORDERED: ARAVA PO SCH (09:30)
[2017-10-02] MEDS: VANCOMYCIN 1 GM in SODIUM CHLORIDE 250 ML IV SCH (10:44)
[2017-10-02] MEDS: LIFITEGRAST OP SCH ×2 (12:29→20:48)
[2017-10-02] MEDS: HUMULIN R SUBCUT PRN ×3 (12:30→20:42)
--- NOTE | 2017-10-02 13:31 | US ---
EXAM: Carotid ultrasound HISTORY: Left facial numbness COMPARISON: 06/27/2010 TECHNIQUE: Carotid ultrasound was performed using wu scale, color, and Doppler imaging was perform ed. FINDINGS: Right carotid: There is atherosclerotic plaque in the common carotid and bulb/proximal internal schwarz tid artery. Peak systolic velocity measurement in the right internal carotid artery is 0.9 meters pe r second. End-diastolic velocity measurement in the right internal carotid artery is 0.2 meters per second. Right internal to common carotid artery peak systolic velocity ratio is 1.6. Flow in the ri ght vertebral artery is antegrade. Left carotid: There is atherosclerotic plaque in the common carotid and bulb/proximal internal carot id artery. Peak systolic velocity measurement in the left internal carotid artery is 1.2 meters per second. End-diastolic velocity measurement in the left internal carotid artery is 0.3 meters per sec ond. Left internal to common carotid artery peak systolic velocity ratio measures 1.9. Left vertebr al artery not visualized. IMPRESSION: 1. Right internal carotid: Peak systolic velocity corresponds with mild (less than 50%) stenosis. 2. Left internal carotid: Peak systolic velocity corresponds with mild (less than 50%) stenosis. 3. Left vertebral artery not visualized. Antegrade flow in the right vertebral artery.
--- NOTE | 2017-10-02 13:42 | PCM.PROG ---
Attending Provider: ATTENDING PROVIDER: Dr. CHEN MERCER DATE OF SERVICE: 10/02/17 SUBJECTIVE: This 62 year old WHITE/ F was hospitalized 10/01/17 with left hand cellulitis. Condition seems to have improved with less redness. Also has face numbness. Will do carotid scan. REVIEW OF SYSTEMS: CONSTITUTIONAL: No night sweats. No fatigue, malaise, lethargy. No fever or chills. HEENT: Eyes: No visual changes. No eye pain. No eye discharge. ENT: No runny nose. No epistaxis. No sinus pain. No odynophagia. No congestion. RESPIRATORY: No cough, no congestion. No hemoptysis. No shortness of breath. CARDIOVASCULAR: No angina symptoms. No CHF symptoms. No atypical chest pain for CAD. No palpitations. No orthopnea.. GASTROINTESTINAL: No abdominal pain. No nausea or vomiting. No diarrhea or constipation. No hematemesis. No hematochezia. GENITOURINARY: No urgency. No frequency. No dysuria. No hematuria. No obstructive symptoms. No discharge. No pain. No significant abnormal bleeding. MUSCULOSKELETAL: No musculoskeletal pain; no joint swelling. NEUROLOGICAL: Awake, alert, oriented to time, place and person. No headache. No neck pain. No syncope. No seizures. No dizziness. PSYCHIATRIC: Not anxious. No depression. No suicidal thoughts. No homicidal thoughts. SKIN: No rash. No lesions. No wounds. Cellulitis left hand. ENDOCRINE: No unexplained weight loss. No weight gain. HEMATOLOGIC/LYMPHATIC: No anemia. No purpura. No petechiae. No prolonged or excessive bleeding. No palpable lymph nodes. PHYSICAL EXAMINATION: GENERAL: The patient is awake, alert and oriented, lying in bed in no distress. VITAL SIGNS: Temperature 98.0 F, Pulse 80, Respiratory Rate 18, BP 98/48, Pulse Ox 93% HEENT: Head normocephalic, atraumatic. Eyes: Extraocular muscles are intact. Pupils are equal, round and reactive to light and accommodation. Ears: No lesions. Nose appeared normal. Throat: No exudate or erythema. NECK: Supple. No JVD, no carotid bruit. No lymphadenopathy or thyromegaly. LUNGS: Clear to auscultation. Percussion note normal. Chest symmetrical. HEART: S1, S2, no S3. No murmurs. No cyanosis or clubbing. No ascites. Pulses: Dorsalis pedis and posterior tibial pulses +1 to +2 both sides. ABDOMEN: Soft. Non-tender. Bowel sounds active. No CVA tenderness. No mass felt. EXTREMITIES: No edema. Full range of motion of all extremities, equal. NEUROLOGIC: No focal deficit. Cranial nerves II through XII are grossly intact. No headache, no double vision or headache. SKIN: Warm and dry. Intact. Turgor-normal. Left hand 1/2 of dorsal aspect swollen, no red streaks and no discharge. LYMPHATIC: No palpable lymph nodes/no lymphedema. MUSCULOSKELETAL: Normal joints with no swelling. Muscle tone is normal. LAB REVIEW: 10/02/17 04:30 10/02/17 04:30 10/02/17 04:30: Sodium 140, Potassium 3.9, Chloride 107, Carbon Dioxide 23, Anion Gap 13.9, BUN 25 H, Creatinine 1.49 H, Estimated GFR (MDRD) 35.00, BUN/ Creatinine Ratio 16.77, Glucose 82, Calcium 8.6, Total Bilirubin 0.3, AST 41 H D , ALT 28, Alkaline Phosphatase 57, Total Protein 5.9, Albumin 2.7 L, Globulin 3.2, Albumin/Globulin Ratio 0.84 10/02/17 04:30: WBC 5.67, RBC 3.72 L, Hgb 11.5 L, Hct 33.9 L, MCV 91.1, MCH 30.9 , MCHC 33.9, RDW Coeff of Boni 13.2, Plt Count 221, Immature Gran % (Auto) 0.4, Neut % (Auto) 41.7, Lymph % (Auto) 39.9, [place] % (Auto) 14.3 H, Eos % (Auto) 2.8 , Baso % (Auto) 0.9, Immature Gran # (Auto) 0.0, Neut # (Auto) 2.4, Lymph # ( Auto) 2.3, [place] # (Auto) 0.8, Eos # (Auto) 0.2, Baso # (Auto) 0.1 10/02/17 04:30: Total Creatine Kinase 77, Troponin I 0.0390 10/01/17 21:15: Total Creatine Kinase 85, Troponin I 0.0340 ASSESSMENT: Please see below. 1. Cellulitis of left hand 2. Diabetes mellitus Type 2 3. Coronary artery disease 4. History of folliculitis of face and scalp 5. CKD 6. Anemia PLAN: 1. Continue same plan of treatment 2. Add Vancomycin 1 gm q.12 3. Will do carotid scan 4. Will give 1/2 cc Decadron Plan and coordination of the patient's care discussed in the presence of Test Department Helper and nurse. CONDITION: Stable SCRIBED BY: TEVIN MITCHELL Sales Representative [employer] scribed while in presence of service performed by Dr. CHEN MERCER on 10/02/17 ([id number])
[2017-10-02] MEDS: SODIUM CHLORIDE 1,000 ML IV SCH (14:25)
[2017-10-02] MEDS: LASIX TAB PO SCH (16:54)
[2017-10-02] MEDS ORDERED: COUMADIN PO SCH ×2 (17:00)
[2017-10-02] MEDS ORDERED: WARFARIN SODIUM 7 MG PO SCH (17:00)
[2017-10-02] MEDS ORDERED: ZOCOR PO SCH (21:00)
[2017-10-03] MEDS: SODIUM CHLORIDE 1,000 ML IV SCH (05:11)
[2017-10-03] MEDS: PROTONIX PO SCH (05:34)
[2017-10-03] MEDS: LASIX TAB PO SCH (05:34)
[2017-10-03] MEDS: HUMULIN R SUBCUT PRN ×2 (06:02→12:11)
[2017-10-03] MEDS: ROCEPHIN 1 GM in SODIUM CHLORIDE 50 ML IV SCH (08:50)
[2017-10-03] MEDS: BETAPACE PO SCH (08:52)
[2017-10-03] MEDS: ASPIRIN EC PO SCH (08:52)
[2017-10-03] MEDS: K-DUR PO SCH (08:53)
[2017-10-03] MEDS: COZAAR PO SCH (08:53)
[2017-10-03] MEDS: LIFITEGRAST OP SCH (08:54)
[2017-10-03] MEDS: VANCOMYCIN 1 GM in SODIUM CHLORIDE 250 ML IV SCH (10:09)
[2017-10-03 10:16] VITALS: BP 105/61; TEMP 97.4
--- NOTE | 2017-10-03 11:10 | CM.DICTOOL ---
ADMISSION: 10/01/17 18:30 DISCHARGE: OCTOBER 03, 2017 DATE OF SERVICE: 10/03/17 FINAL DIAGNOSIS CELLULITIS LEFT HAND LEFT HAND PAIN DIABETES, TYPE 1 CHRONIC KIDNEY DISEASE COPD ASTHMA ANEMIA RA PAD, SEVERE DYSLIPIDEMIA NEUROPATHY GERD CVA, CAD WITH NE ANGIOPLASTY CABG, 2013 HEART CATH, 2001 RENAL STENT LASER SURGERY BOTH EYES APPENDECTOMY CHOLECYSTECTOMY HYSTERECTOMY PREVIOUS SMOKER, NONE SINCE 2000 LAST VITALS Temp Pulse Resp BP Pulse Ox 97.4 F L 72 18 105/61 97 10/03/17 10:00 10/03/17 10:00 10/03/17 10:00 10/03/17 10:00 10/03/17 10:00 TAKE THESE MEDICATIONS Hydrocodone Bitart/Acetaminophen ([place] 10-325) 1 tab PO TID PRN PRN Reason: Analgesia Aspirin (Aspirin Ec) 325 mg PO DAILYWM [facility] Last Admin: 10/03/17 08:52 Dose: 325 mg Furosemide (Lasix Tab) [facility] Last Admin: 10/03/17 05:34 Dose: 80 mg Glucagon (Glucagen) 1 mg SUBCUT PRN PRN PRN Reason: HYPOGLYCEMIA Alprazolam 0.5 mg PO TID PRN Last Admin: Cilostazol 100 mg PO BID Last Admin: Cimetidine 800 mg PO BEDTIME Last Admin: Ergocalciferol (Vitamin D2) 50,000 UNIT PO TU Last Admin: Folic Acid 3 mg PO DAILY Last Admin: Insulin Glargine, (Lantus) 32 UNITS DAILY SQ Last Admin: Iron 65 mg PO DAILY Last Admin: Ondansetron (ZOfran) 4 mg PO TID PRN Last Admin: Propylene Glycol (Systane Ultra Eye Drop) 1 each OP DAILY PRN Last Admin: Calcitriol 1 cap PO BEDTIME Last Admin: Cetrizine (Zyrtec) 10 mg PO DAILY PRN Last Admin: Insulin Lispro (Humalog Kwikpen) 0-20 unit SUBCUT PRN PRN PRN Reason: Hyperglycemica Last Admin: 10/03/17 06:02 Dose: 5 unit Leflunomide (Arava) 10 mg PO SuMoWeFr@0900 [facility] Last Admin: 10/02/17 09:25 Dose: 10 mg Losartan Potassium (Cozaar) 25 mg PO DAILY [facility] Last Admin: 10/03/17 08:53 Dose: 25 mg Nitroglycerin (Nitrostat) 0.4 mg SL Q5MIN X 3 DOSES PRN PRN Reason: CHEST PAIN Non-Formulary Medication (Lifitegrast [Xiidra]) 1 each OP BID [facility] Last Admin: 10/03/17 08:54 Dose: 1 each Pantoprazole Sodium (Protonix) 40 mg PO BIDAC [facility] Last Admin: 10/03/17 05:34 Dose: 40 mg Potassium Chloride (K-Dur) 20 meq PO TID [facility] Last Admin: 10/03/17 08:53 Dose: 20 meq Simvastatin (Zocor) 20 mg PO BEDTIME [facility] Last Admin: 10/02/17 20:41 Dose: 20 mg Sotalol HCl (Betapace) 40 mg PO BID [facility] Last Admin: 10/03/17 08:52 Dose: 40 mg Warfarin Sodium (Coumadin) 5 mg PO 1700 [facility] Warfarin Sodium (Coumadin) 2 mg PO 1700 [facility] Keflex 500 mg BID for 7 days Last Admin: MEDICATION CHANGES None ALLERGIES clopidogrel bisulfate [From Plavix] Adverse Reaction (Verified 10/01/17 16:38) erythromycin base [Erythromycin Base] Adverse Reaction (Verified 10/01/17 16:38) ibuprofen Adverse Reaction (Verified 10/01/17 16:38) insulin detemir [From Levemir] Adverse Reaction (Verified 10/01/17 16:38) insulin NPH human isophane [From Humulin 70/30] Adverse Reaction (Verified 10/01 16:38) insulin regular, human [From Humulin 70/30] Adverse Reaction (Verified 10/01/17 16:38) iodine Adverse Reaction (Verified 10/01/17 16:38) latex Adverse Reaction (Verified 10/01/17 16:38) topiramate [From Topamax] Adverse Reaction (Verified 10/01/17 16:38) NEW PRESCRIPTIONS: Keflex 500 mg BID for 7 days Glucagon Emergency Kit 1 mg SMOKING: Not Applicable DISEASE SPECIFIC EDUCATION: Medications Cellulitis Appointment LAB REVIEW: 10/03/17 04:30 10/03/17 04:30 10/03/17 04:30: PT 20.6 H D, INR 2.11 10/03/17 04:30: Sodium 136, Potassium 4.1, Chloride 100, Carbon Dioxide 25, Anion Gap 15.1, BUN 30 H, Creatinine 1.70 H, Estimated GFR (MDRD) 30.00, BUN/ Creatinine Ratio 17.64, Glucose 444 H D, Calcium 8.9, Total Bilirubin 0.4, AST 29, ALT 28, Alkaline Phosphatase 70, Total Protein 6.5, Albumin 2.9 L, Globulin 3.6, Albumin/Globulin Ratio 0.81 10/03/17 04:30: WBC 5.85, RBC 4.02 L, Hgb 12.3, Hct 36.4 L, MCV 90.5, MCH 30.6, MCHC 33.8, RDW Coeff of Boni 13.2, Plt Count 241, Immature Gran % (Auto) 0.2, Neut % (Auto) 54.8, Lymph % (Auto) 30.6, [place] % (Auto) 13.0 H, Eos % (Auto) 0.9 , Baso % (Auto) 0.5, Immature Gran # (Auto) 0.0, Neut # (Auto) 3.2, Lymph # ( Auto) 1.8, [place] # (Auto) 0.8, Eos # (Auto) 0.1, Baso # (Auto) 0.0 10/02/17 12:50: Urine Color Yellow, Urine Clarity Clear, Urine pH 5.5, Ur Specific [place] 1.010, Urine Protein Negative, Urine Glucose (UA) 1+, Urine Ketones Negative, Urine Blood Trace-intact, Urine Nitrite Negative, Urine Bilirubin Negative, Urine Urobilinogen 0.2, Ur Leukocyte Esterase Trace, Urine Microscopic RBC 2-5, Urine Microscopic WBC 2-5, Ur Squamous Epith Cells 2-5, Urine Bacteria Trace PLAN: DISCHARGE HOME DIET: CONSISTENT CARBOHYDRATES ACTIVITY: RESUME TOLERATED CONTINUE TO CHECK BLOOD SUGARS DIRECTED OR AT LEAST 3-4 TIMES DAILY AN APPOINTMENT IS SCHEDULED WITH DR. MERCER/ALFRED KINSEY APRN ON September AT 3 PM CALL OR GO TO ER IF SIGNS OF REDNESS, RED STREAKING, FEVER OR INCREASED PAIN TO LEFT HAND MRS. PICKARD IS ALERT AND ORIENTED X 3. SHE REPORTS LESS PAIN AND LESS SWELLING TO THE LEFT HAND. SHE REPORTS INCREASED MOVEMENT TO THE LEFT HAND AND FINGERS. NO REDNESS NOTED, BUT BRUISING IS NOTED TO THE TOP OF THE LEFT HAND. NO OPEN WOUNDS, SCRATCHES OR PUNCTURES ARE NOTED TO THE LEFT HAND. MRS. PICKARD IS AMBULATORY AND INDEPENDENT WITH ACTIVITIES OF DAILY LIVING. HER APPETITE IS GOOD WITH INTAKES OF 100% NOTED. NO URINARY OR BOWEL INCONTINENCE NOTED. CHEN MERCER MD
--- NOTE | 2017-10-03 11:17 | PCM.PROG ---
Attending Provider: ATTENDING PROVIDER: Dr. CHEN MERCER DATE OF SERVICE: 10/03/17 SUBJECTIVE: This 62 year old WHITE/ F was hospitalized 10/01/17 with left hand cellulitis, which has resolved. REVIEW OF SYSTEMS: CONSTITUTIONAL: No night sweats. No fatigue, malaise, lethargy. No fever or chills. HEENT: Eyes: No visual changes. No eye pain. No eye discharge. ENT: No runny nose. No epistaxis. No sinus pain. No odynophagia. No congestion. RESPIRATORY: No cough, no congestion. No hemoptysis. No shortness of breath. CARDIOVASCULAR: No angina symptoms. No CHF symptoms. No atypical chest pain for CAD. No palpitations. No orthopnea.. GASTROINTESTINAL: No abdominal pain. No nausea or vomiting. No diarrhea or constipation. No hematemesis. No hematochezia. GENITOURINARY: No urgency. No frequency. No dysuria. No hematuria. No obstructive symptoms. No discharge. No pain. No significant abnormal bleeding. MUSCULOSKELETAL: No musculoskeletal pain; no joint swelling. NEUROLOGICAL: Awake, alert, oriented to time, place and person. No headache. No neck pain. No syncope. No seizures. No dizziness. PSYCHIATRIC: Not anxious. No depression. No suicidal thoughts. No homicidal thoughts. SKIN: No rash. No lesions. No wounds. Mild swelling and discoloration of left hand. ENDOCRINE: No unexplained weight loss. No weight gain. HEMATOLOGIC/LYMPHATIC: No anemia. No purpura. No petechiae. No prolonged or excessive bleeding. No palpable lymph nodes. PHYSICAL EXAMINATION: GENERAL: The patient is awake, alert and oriented, lying in bed in no distress. VITAL SIGNS: Temperature 97.8 F, Pulse 76, Respiratory Rate 20, BP 106/56, Pulse Ox 95% HEENT: Head normocephalic, atraumatic. Eyes: Extraocular muscles are intact. Pupils are equal, round and reactive to light and accommodation. Ears: No lesions. Nose appeared normal. Throat: No exudate or erythema. NECK: Supple. No JVD, no carotid bruit. No lymphadenopathy or thyromegaly. LUNGS: Clear to auscultation. Percussion note normal. Chest symmetrical. HEART: S1, S2, no S3. No murmurs. No cyanosis or clubbing. No ascites. Pulses: Dorsalis pedis and posterior tibial pulses +1 to +2 both sides. ABDOMEN: Soft. Non-tender. Bowel sounds active. No CVA tenderness. No mass felt. EXTREMITIES: No edema. Full range of motion of all extremities, equal. Left hand mild swelling and discoloration remains. NEUROLOGIC: No focal deficit. Cranial nerves II through XII are grossly intact. No headache, no double vision or headache. SKIN: Warm and dry. Intact. Turgor-normal. LYMPHATIC: No palpable lymph nodes/no lymphedema. MUSCULOSKELETAL: Normal joints with no swelling. Muscle tone is normal. LAB REVIEW: 10/03/17 04:30 10/03/17 04:30 10/03/17 04:30: PT 20.6 H D, INR 2.11 10/03/17 04:30: Sodium 136, Potassium 4.1, Chloride 100, Carbon Dioxide 25, Anion Gap 15.1, BUN 30 H, Creatinine 1.70 H, Estimated GFR (MDRD) 30.00, BUN/ Creatinine Ratio 17.64, Glucose 444 H D, Calcium 8.9, Total Bilirubin 0.4, AST 29, ALT 28, Alkaline Phosphatase 70, Total Protein 6.5, Albumin 2.9 L, Globulin 3.6, Albumin/Globulin Ratio 0.81 10/03/17 04:30: WBC 5.85, RBC 4.02 L, Hgb 12.3, Hct 36.4 L, MCV 90.5, MCH 30.6, MCHC 33.8, RDW Coeff of Boni 13.2, Plt Count 241, Immature Gran % (Auto) 0.2, Neut % (Auto) 54.8, Lymph % (Auto) 30.6, [place] % (Auto) 13.0 H, Eos % (Auto) 0.9 , Baso % (Auto) 0.5, Immature Gran # (Auto) 0.0, Neut # (Auto) 3.2, Lymph # ( Auto) 1.8, [place] # (Auto) 0.8, Eos # (Auto) 0.1, Baso # (Auto) 0.0 10/02/17 12:50: Urine Color Yellow, Urine Clarity Clear, Urine pH 5.5, Ur Specific [place] 1.010, Urine Protein Negative, Urine Glucose (UA) 1+, Urine Ketones Negative, Urine Blood Trace-intact, Urine Nitrite Negative, Urine Bilirubin Negative, Urine Urobilinogen 0.2, Ur Leukocyte Esterase Trace, Urine Microscopic RBC 2-5, Urine Microscopic WBC 2-5, Ur Squamous Epith Cells 2-5, Urine Bacteria Trace 10/02/17 09:15: PT 36.0 H D, INR 3.74 ASSESSMENT/PLAN: 1. Left hand cellulitis with redness has resolved with mild swelling and discoloration left. 2. The patient will be discharged on Keflex to be taken for 7 days - will see in office in three to four days. 3. D/C home 4. Keflex 500 mg t.i.d. for 7 days 5. D/C Rocephin and Vancomycin eryn and coordination of the patient's care discussed in the presence of Real Estate Professional and nurse. CONDITION: Stable SCRIBED BY: TEVIN MITCHELL Note Teller scribed while in presence of service performed by Dr. CHEN MERCER on 10/03/17 ([id number])
--- NOTE | 2017-10-03 11:51 | HP ---
DATE OF SERVICE: 10/01/17 REASON FOR HOSPITALIZATION: Cellulitis of left hand HISTORY OF PRESENT ILLNESS: 62 year old white female has cellulitis of the left hand and she went to emergency room. The patient had a sudden onset. The patient's half the hand dorsum was inflamed including the fingers. The patient has history of type 1 diabetes so it was decided to put her on the hospital for IV treatment with antibiotics Rocephin and Vancomycin. PAST MEDICAL HISTORY/PAST SURGICAL HISTORY: History of coronary artery disease Peripheral arterial disease Chronic lung disease Folliculitis Chronic kidney disease Type 1 diabetes Chronic anemia Diabetic neuropathy Diabetic Retinopathy REVIEW OF SYSTEMS: CONSTITUTIONAL: No night sweats. Fatigue and weakness. No fever. Questionable chills at home. HEENT: Eyes: No visual changes. No eye pain. No eye discharge. ENT: No runny nose. No epistaxis. No sinus pain. No sore throat. No odynophagia. No ear pain. No congestion. RESPIRATORY: No cough, no congestion. No hemoptysis. No shortness of breath. CARDIOVASCULAR: No angina symptoms. No CHF symptoms. No atypical chest pain for CAD. No palpitations. No orthopnea. GASTROINTESTINAL: No abdominal pain. No nausea or vomiting. No diarrhea or constipation. No hematemesis. No hematochezia. GENITOURINARY: No urgency. No frequency. No dysuria. No hematuria. No obstructive symptoms. No discharge. No pain. No significant abnormal bleeding. MUSCULOSKELETAL: No musculoskeletal pain. No joint swelling. No arthritis. Left hand pain, tightness. NEUROLOGICAL: No headache. No neck pain. No syncope. No seizures. No dizziness. PSYCHIATRIC: Not anxious. No depression. No suicidal thoughts. No homicidal thoughts. SKIN: No rash. No lesions. No wounds. ENDOCRINE: No unexplained weight loss. No weight gain. HEMATOLOGIC/LYMPHATIC: No anemia. No purpura. No petechiae. No prolonged or excessive bleeding. No palpable lymph nodes. PERSONAL/FAMILY/SOCIAL HISTORY: The patient is and lives with the . She is nonsmoker and no history of alcohol abuse. Does all activity of daily living. Intelligent and tired. MEDICATIONS: Xanax 0.5mg three times a day Aspirin 325mg PO daily Cilostazol 100mg PO twice a day Tagamet 800mg at bedtime Lasix 80mg twice a day [place] 10-325mg three times a day Lantus Solostar 40 units daily Iron 65mg PO daily Nitroglycerin PRN sublingual for chest pain Zofran 4mg three times a day PRN K-Dur 20meq three times a day Simvastatin 20mg at bedtime Betapace 40mg Twice a day Coumadin 7mg daily Zyrtec 10mg PO daily Humalog for meal coverage Protonix 40mg twice a day Glucagon emergency kit Cozaar 25mg daily ALLERGIES: Clopidogrel Erythromycin Ibuprofen Insulin Levemir Humulin insulin Iodine Latex Topamax PHYSICAL EXAMINATION: GENERAL: The patient is oriented to time, place and person. VITAL SIGNS: Temperature 98, pulse 80, respiratory rate 18, blood pressure 100/ 48 and pulse ox 93% on room air. HEENT: Head normocephalic, atraumatic. Eyes: Extraocular muscles are intact. Pupils are equal, round and reactive to light and accommodation. Ears: No lesions. Nose appeared normal. Throat: No exudate or erythema. NECK: Supple. No JVD, no carotid bruit. No lymphadenopathy or thyromegaly. LUNGS: Decreased breath sounds but clear to auscultation. Percussion note normal. Chest symmetrical. HEART: S1, S2, no S3. Grade I/ systolic murmur. No cyanosis or clubbing. No ascites. Pulses: Dorsalis pedis and posterior tibial pulses bilateral. ABDOMEN: Soft. Nontender. Bowel sounds active. No CVA tenderness. No mass felt. EXTREMITIES: No edema. Full range of motion of all extremities, equal. Left hand half dorsum including all fingers, redness and swelling. No red streaks noted. NEUROLOGIC: No focal deficit. Cranial nerves II through XII are grossly intact. No headache, no double vision or headache. SKIN: Not dry. Intact. Turgor - normal. LYMPHATIC: No palpable lymph nodes/no lymphedema. MUSCULOSKELETAL: Normal joints with no swelling. Muscle tone is normal. ASSESSMENT: 1. Cellulitis of the left hand 2. Type 1 diabetes 3. Peripheral arterial disease 4. Coronary artery disease 5. Chronic lung disease 6. Chronic kidney disease 7. Chronic anemia 8. Diabetic nephropathy 9. Diabetic neuropathy 10.Diabetic Retinopathy 11.Dyslipidemia 12.Hypertension PLAN: 1. Continue all the medications 2. Telemetry 3. Will given Rocephin and Vancomycin. TIME SPENT: More than [address] [facility]
--- NOTE | 2017-10-03 12:58 | PN ---
DATE OF SERVICE: 10/01/17 SUBJECTIVE: The patient was seen and examined. The patient has right upper extremity cellulitis sudden onset. The patient has history of folliculitis of the scalp. Other possibilities is acute inflammation from gouty arthritis which is less likely. The patient is type 1 diabetic and has multiple other medical problems like peripheral arterial disease, coronary artery disease, dyslipidemia and hypertension. The patient is going to be admitted and treated with IV antibiotics. CONDITION: Stable. TIME SPENT: More than 30 minutes. Plan and coordination of the patient's care discussed in the presence of nurse. SHERRY
--- NOTE | 2017-10-08 15:46 | DS ---
DATE OF SERVICE: 10/03/17 FINAL DIAGNOSIS: 1. Cellulitis left hand 2. Left hand pain 3. Diabetes type 1 4. Chronic kidney disease 5. COPD 6. Asthma 7. Anemia 8. Rheumatoid arthritis 9. PAD, severe 10.Dyslipidemia 11.Neuropathy 12.GERD 13.CVA, 14.CAD with [place] 15.Angioplasty 16.CABG, 2013 17.Heart cath, 2001 18.Renal stent 19.Laser surgery both eye 20.Appendectomy 21.Cholecystectomy 22.Hysterectomy 23.Previous smoker, none since 2000 LAST VITALS: Temperature 97.4, pulse 72, respiratory rate 18,blood pressure 105/61 and pulse ox 97%. DISCHARGE INSTRUCTIONS: Discharge home. Continue to check blood sugars as directed or at least 3-4 times daily. An appointment is scheduled with Dr. Huggins/Reva Guzmán APRN on October 07 at 3pm call or go to ER if signs or redness, red streaking, fever or increased pain to left hand. MEDICATIONS AT DISCHARGE: [place] 10-325 on tablet PO three times a day PRN Aspirin 325mg PO daily Lasix 80mg PO twice a day Glucagen 1mg SUBCUT PRN Alprazolam 0.5mg PO three times a day PRN Cilostazol 100mg PO twice a day Cimetidine 800mg PO bedtime Vitamin D2 50,000 unit PO TU Folic acid 3mg PO daily Lantus 32 units daily SQ Iron 65mg PO daily Zofran 4mg PO three times a day PRN Systane Ultra eye drop one each OP daily PRN Calcitriol one cape PO bedtime Zyrtec 10mg PO daily PRN Humalog 0-20 unit SUBCUT PRN Arava 10mg PO SuMoWeFr@ 0900 Cozaar 25mg PO daily Nitrostat 0.4mg SL Q 5 minutes x 3 doses PRN Xiidra one each OP twice a day Protonix 40ng PO twice a day K-Dur 20meq PO three times a day Zocor 20mg PO bedtime Betapace 40mg PO twice a day Coumadin 5mg PO 1700 Coumadin 2mg PO 1700 Keflex 500mg twice a day 7 days ALLERGIES: Clopidogrel Erythromycin Ibuprofen Insulin Determir Insulin NPH human isophane Insulin Regular, human Iodine Latex Topiramate NEW PRESCRIPTIONS: Keflex 500mg twice a day for 7 days Glucagon emergency kit 1mg DIET INSTRUCTIONS: Consistent carbohydrates ACTIVITY: Resume as tolerated SMOKING: N/A DISEASE SPECIFIC EDUCATION: Medications Cellulitis Appointment HOSPITAL COURSE: Linda Resendiz was hospitalized with cellulitis of the left hand. The patient was treated with IV Rocephin and Vancomycin. Condition improved remarkably. At that time of discharge the inflammation had already subsided. The patient is healing and still had some swelling of the dorsum of the left hand. The patient would sent home on Keflex to be taken for 7 days. Condition at the time of discharge is stable. TIME SPENT: More than 60 minutes. MTDD
--- NOTE | 2017-10-08 15:47 | PN ---
10/01/17: Level 5 10/02/17: Intermediate 10/03/17: D as in discharge MTDD
== END 2017-10-03 13:29 | disposition home or self-care (01) | DRG 603 ==
LOC: ED 16:30 → MEDSURG A 18:30
PROVIDERS: ADMIT Internal Medicine; ATTEND Internal Medicine
DX: L03.114 Cellulitis of left upper limb (principal); M79.642 Pain in left hand; R20.0 Anesthesia of skin; R21 Rash and other nonspecific skin eruption; E10.40 Type 1 diabetes mellitus with diabetic neuropathy, unspecified; E10.319 Type 1 diabetes mellitus with unspecified diabetic retinopathy without macular edema; E10.21 Type 1 diabetes mellitus with diabetic nephropathy; E10.22 Type 1 diabetes mellitus with diabetic chronic kidney disease; N18.9 Chronic kidney disease, unspecified; J44.9 Chronic obstructive pulmonary disease, unspecified; I73.9 Peripheral vascular disease, unspecified; I25.10 Atherosclerotic heart disease of native coronary artery without angina pectoris; D64.9 Anemia, unspecified; K21.9 Gastro-esophageal reflux disease without esophagitis; M06.9 Rheumatoid arthritis, unspecified; E78.5 Hyperlipidemia, unspecified; Z86.73 Personal history of transient ischemic attack (TIA), and cerebral infarction without residual deficits; Z79.01 Long term (current) use of anticoagulants; Z79.4 Long term (current) use of insulin; Z98.61 Coronary angioplasty status; Z96.0 Presence of urogenital implants; Z87.2 Personal history of diseases of the skin and subcutaneous tissue
CPT/HCPCS: 36415; 80053; 81001; 82550; 82962; 84145; 84484; 85025; 85610; 85730; 87040; 93005; 93010; 96365; 96375; 99284

== ENCOUNTER 2017-10-10 12:46 | Outpatient (CLI) ==
--- NOTE | 2017-10-10 13:28 | DI ---
EXAM: Six views of the cervical spine. History: Left facial numbness. Findings: No acute fracture. No prevertebral soft tissue swelling. Predental space is not widened. Minimal 2 mm retrolisthesis of C4 on C5. Moderate disc space narrowing at C4-5 with endplate scler osis and small osteophytes. Mild disc space narrowing seen elsewhere. Sternotomy wires. The obliqu e images demonstrate mild to moderate bilateral bony neural foraminal narrowing at C4-5 secondary to uncovertebral and facet hypertrophy. Impression: 1. No acute fracture. 2. Minimal retrolisthesis of C4 on C5. 3. Mild to moderate degenerative changes at C4-5
--- NOTE | 2017-10-10 13:38 | CT ---
EXAM: CT head without contrast. HISTORY: Left facial numbness. COMPARISON: 05/10/2010. TECHNIQUE: Multiple axial images of the brain were obtained from the skull base through the vertex w ithout intravenous contrast. Multiplanar reformats were provided. FINDINGS: There is no intracranial hemorrhage or extraaxial collection. The wu-white differentiat ion is maintained without evidence for acute large vascular territory infarction. There are mild are as of periventricular and subcortical white matter low attenuation. The cortical sulci and basal cis terns are well visualized. There is no hydrocephalus, mass effect, or midline shift. Small air-flui d level noted in the left sphenoid sinus. Otherwise, the paranasal sinuses and mastoid air cells are clear. The calvarium is intact. IMPRESSION: 1. No acute intracranial abnormality. 2. Mild chronic small vessel ischemic changes.
== END 2017-10-10 12:47 | disposition home or self-care (01) ==
LOC: RAD 12:46
PROVIDERS: ATTEND Internal Medicine
DX: R20.0 Anesthesia of skin (principal); R55 Syncope and collapse; M54.2 Cervicalgia

== ENCOUNTER 2018-03-20 06:49 | Outpatient (CLI) ==
--- NOTE | 2018-03-21 12:43 | ECHO2D ---
Date of Exam: 03/20/18 Ordering Physician: DR. CHEN MERCER Room #: OP Reason for Echo: CHEST PAIN, SOB M-Mode Normal Adult Results LV Dimensions Normal Adult Results AoV Opening excursions >1.6 >1.6 LVEDD-base- 3.5-5.8 5.4 Ao root dimensions 2.0-3.7 4.1 LVESD-base- 3.1-4.6 L. Atrium dimensions 1.9-3.8 3.5 Post. Wall thickness 0.8-1.1 1.1 IV septum (thickness) 0.7-1.2 1.2 Post. Wall excursion 0.72-1.3 NORMAL Septal motion NORMAL Systolic motion R. Ventricular cavity 1.5-2.0 NORMAL LVEF 60% 53% Paradoxical septal wall motion NORMAL 2-D : NORMAL LEFT VENTRICULAR CONTRACTILITY--NORMAL VALVES--NO EFFUSION, NO THROMBUS, DILATED AORTIC ROOT, NORMAL LEFT VENTRICLE SIZE M-MODE: MV: NORMAL AV: NORMAL TV: NORMAL PV: CHAMBER SIZE: NORMAL WALL MOTION: NORMAL PERICARDIUM: NORMAL INTERPRETATION: 1. BORDERLINE LEFT VENTRICULAR HYPERTROPHY 2. MILDLY DILATED AORTIC ROOT 3. NORMAL VALVES 4. LEFT VENTRICULAR EJECTION FRACTION 53%--NEAR NORMAL LEFT VENTRICULAR CONTRACTILITY MTDD
== END 2018-03-20 06:50 | disposition home or self-care (01) ==
LOC: CAR 06:49
PROVIDERS: ATTEND Internal Medicine
DX: R06.02 Shortness of breath (principal); R07.9 Chest pain, unspecified
CPT/HCPCS: 93005; 93010

== ENCOUNTER 2018-03-21 06:50 | Outpatient (CLI) ==
[2018-03-21] MEDS ORDERED: DOBUTAMINE 250 ML IV ONE (07:47)
[2018-03-21] MEDS ORDERED: ATROPINE SULFATE PFS ONE (07:47)
[2018-03-21] MEDS ORDERED: DOBUTAMINE 500 MG-D5W 250 ML 500 MG in PREMIX 250 ML D5W 1 BAG IV ONE (08:45)
[2018-03-21] MEDS ORDERED: BETAPACE ONE (09:32)
--- NOTE | 2018-03-21 11:01 | NM ---
Cardiac Stress Test HISTORY: Chest pain, shortness of breath. COMPARISON: None of this type. TECHNIQUE: Resting: The patient was injected with 3.7 mCi thallium 201 chloride intravenously after which a "re sting" SPECT study of the heart was performed. Stress: The patient was stressed pharmacologically with dobutamine and at the appropriate time injec jens with 25 millicuries of 99m technetium Sestamibi (Cardiolite) after which a "stress" SPECT study o f the heart was performed. Gated images of the heart were also obtained to assess wall motion and nereida culate ejection fraction. For details of the stress protocol employed, reference is made to the sepa rate report of the performing physician. FINDINGS: The stress perfusion images demonstrate a region of decreased activity in the distal septu m near the apex which improves at rest consistent with ischemia. The there is a previously described large region of decreased activity in the inferior and lateral wall which appears to become smaller a t rest suggesting modest ischemia. Ischemic changes are detected by computer evaluation but are not r eadily apparent by visual evaluation in this region. The left ventricular ejection fraction (LVEF) is 45%. The previous ejection fraction was 46%. . IMPRESSION: 1. Left ventricular myocardial perfusion demonstrates evidence of redistribution/ischemia in the dis zafar septum near the apex. In addition, there is a large old inferior and lateral wall infarct identi fied on the prior examination with computer generated diagnosis of possible small ischemic segments w ithin this defect. This is not easily appreciated by visual evaluation of the images. 2. The left ventricular ejection fraction (LVEF) is 45%. The previous ejection fraction was 46%.
--- NOTE | 2018-03-24 09:31 | DOBSTECHST ---
Ordering Physician: DR. CHEN MERCER Date of Test: 03/21/18 Reason for Examination: CHEST PAIN, SOB Height: 69" Weight: 208 LBS Current Medications: PLETAL, CIMETIDINE, ASA, WARFARIN, LOSARTAN, LASIX, SOTALOL , POTASSIUM, PROTONIX, XANAX, ZOCOR, LANTIS SOLOSTAR INSULIN, HUMALOG, ZOFRAN, LEFLUNOMIDE, NORCO, NITRO, IMDUR, IRON Resting EKG: SINUS RHYTHM/ VENTRICULAR QUADRIGEMINY Target Heart Rate: 131/ 155 S-T Segment Stage Time HR BPM BP MMHG Rhythm +/- Elevation Depression Comments/ Symptoms Control Sitting 70 118/82 SR X NONE Dobutamine 250mg/D5W 5cmg/KG/mn 10cmg/KG/mn 3:00 82 SR X NONE 15cmg/KG/mn 2:00 95 SR X NONE 20cmg/KG/mn 2:00 105 156/64 SR X NONE 25cmg/KG/mn 1:20 139 160/60 SR X NONE 30cmg/KG/mn 35cmg/KG/mn 40cmg/KG/mn 4:00 MIN POST INFUSION z 100 132/74 SR X NO COMMENTS 10:00 MIN POST INFUSION z 86 102/70 SR X NO COMMENTS DURATION OF INFUSION 8:20 MAXIMUM HEART RATE REACHED 139 BPM Interpretation: 1. NO EVIDENCE OF ISCHEMIA BY ST-T WAVE 2. NO CHEST PAIN OR DISCOMFORT 3. LEFT VENTRICULAR CONTRACTILITY--IMPROVED WITH DOBUTAMINE INFUSION/MILDLY HYPOKINESIA LEFT VENTRICLE AT REST 4. SESTAMIBI TO FOLLOW 5. AT REST PATIENT HAD INTERMITTENT VENTRICULAR QUADRIGEMINY WITH DOBUTAMINE INFUSION, PATIENT HAD SHORT RUNS OF VENTRICULAR TACHYCARDIA NOTED FOR 10 MINUTES DURING OBSERVATION, ASYMPTOMATIC DURING RECOVERY MTDD
--- NOTE | 2018-03-24 11:01 | ECHOSTRESS ---
Date of Exam: 03/21/18 Ordering Physician: DR. CHEN MERCER Reason for Echo: CHEST PAIN, SOB, CABG, DOBUTAMINE STRESS TEST--NO ISCHEMIA M-Mode Normal Adult Results LV Dimensions Normal Adult Results AoV Opening excursions >1.6 LVEDD-base- 3.5-5.8 Ao root dimensions 2.0-3.7 LVESD-base- 3.1-4.6 L. Atrium dimensions 1.9-3.8 Post. Wall thickness 0.8-1.1 IV septum (thickness) 0.7-1.2 Post. Wall excursion 0.72-1.3 Septal motion Systolic motion R. Ventricular cavity 1.5-2.0 LVEF 60% Paradoxical septal wall motion 2-D: HYPOKINETIC LEFT VENTRICLE AT REST WITH IMPROVED LEFT VENTRICULAR CONTRACTILITY WITH DOBUTAMINE INFUSION M-MODE: MV: AV: TV: PV: CHAMBER SIZE: WALL MOTION: HYPOKINETIC LEFT VENTRICLE AT REST WITH IMPROVED LEFT VENTRICULAR CONTRACTILITY WITH DOBUTAMINE INFUSION PERICARDIUM: INTERPRETATION: 1. HYPOKINETIC LEFT VENTRICLE AT REST WITH IMPROVED LEFT VENTRICULAR CONTRACTILITY WITH DOBUTAMINE INFUSION MTDD
== END 2018-03-21 06:51 | disposition home or self-care (01) ==
LOC: CAR 06:50
PROVIDERS: ATTEND Internal Medicine
DX: R06.02 Shortness of breath (principal); R07.9 Chest pain, unspecified

== ENCOUNTER 2018-03-24 12:26 | Outpatient (CLI) ==
--- NOTE | 2018-03-26 15:20 | HOLTER ---
PATIENT INFORMATION AND COMMENTS Attending Physician: DR. CHEN MERCER Indications: PVC'S AND IRREVERSIBLE ISCHEMIA __ Patient Medications: PLETAL, CIMETIDINE, ASA, WARFARIN, LOSARTAN, LASIX, SOTALOL, POTASSIUM, PROTONIX, XANAX, ZOCOR, LANTIS INSULIN, HUMALOG, ZOFRAN, LEFLUNOMIDE, NORCO, NITRO, IMDUR __ Pre-procedure Summary: Protocol: Standard Heart Rate Started: 03/24/18 1258 Minimum: 60 BPM Weight: 211 LBS Ended: 03/25/18 1258 Maximum: 111 BPM Height: 69" Duration: 24 HOURS Average: 75 BPM _ INTERPRETATIONS/OBSERVATIONS: 1. BASIC RHYTHM: SINUS, RATE 60 BPM TO 110 BPM, AVERAGE 75 BPM 2. FREQUENT PVC'S, TOTAL OF 15% OF BEATS SCANNED, FEW SALVOS AND NONSUSTAINED VENTRICULAR TACHYCARDIA 4 TO 8 BEATS NOTED 3. RARE PAC'S 4. NO ST-T WAVE CHANGES FROM BASELINE 5. ACTIVITY LOG NOT MAINTAINED MTDD
== END 2018-03-24 12:27 | disposition home or self-care (01) ==
LOC: CAR 12:26
PROVIDERS: ATTEND Internal Medicine
DX: I49.3 Ventricular premature depolarization (principal); I99.8 Other disorder of circulatory system
CPT/HCPCS: 93227